=== PATIENT | female | born 1960 | race African-American/Black ===

== ENCOUNTER 2020-09-29 12:45 | Emergency (ER) | payer MEDICARE, SELFPAY ==
--- NOTE | ~2020-09-29 | XR_ITS ---
EXAMINATION: XR thoracic spine 3V, XR lumbar spine 2-3V DATE: 09/29/2020 13:49 INDICATION: Chronic back pain radiating down the left leg TECHNIQUE: 1. One AP, lateral and lateral swimmer's views of the thoracic spine were obtained. 2. AP, lateral and coned-down lateral lumbosacral views of the lumbar spine were obtained. COMPARISON: None. FINDINGS: Thoracic spine: Alignment is normal. Minimal anterior wedging of a few midthoracic vertebral bodies. Multilevel mild disc height loss throughout the thoracic spine. There is also mild disc height loss with prominent an terior endplate osteophytes at several levels in the mid to lower cervical spine. Heart size and medi astinal silhouette are normal. Visualized portion of the lungs are clear. Lumbar spine: Transitional L5 segment which is partially sacralized, more advanced on the left. Minimal thoracolumb ar dextrocurvature. Sagittal alignment is normal. Lumbar vertebral body heights are normal. Mild disc height loss at L3-L4 through L5-S1. Moderate lower lumbar predominant facet osteoarthritis. Sacral a rches are intact. Mild right sacroiliac osteoarthritis. Surgical clips in the anterior pelvis/lower a bdomen. Normal bowel gas pattern. IMPRESSION: 1. Mild cervical and thoracic spondylosis and mild to moderate lumbar spondylosis. Reviewed, dictated and finalized at location A. IMPRESSION: 1. Mild cervical and thoracic spondylosis and mild to moderate lumbar spondylos is.
[2020-09-29 12:50] VITALS: BP 155/71; PULSE 88; RESP 17; TEMP 36.5; O2SAT 97
--- NOTE | 2020-09-29 13:26 | ED.GENADULT ---
HPI - General Adult General Chief complaint: Abdominal Pain Stated complaint: abdominal pain that radiates into back Time Seen by Provider: 09/29/20 13:09 Source: patient History of Present Illness HPI narrative: Patient is a 60 y/o female complaining of upper and mid back pain starting 1 month ago. She describes her pain as aching and rates it as 7/10. She states that her pain is worse when she lays down on her back at night. She took meds for acid reflux, which did not help. There is some pain radiation to left upper abdomen and left buttock. She also has some tingling in her hands. Related Data Home Medications Medication Instructions Recorded Confirmed bupropion HCl 150 mg tablet,12 hr 150 mg PO DAILY 06/25/19 08/25/20 sustained-release fluticasone propionate 50 1 spray NASAL DAILY 06/25/19 08/25/20 mcg/actuation nasal spray,suspension travoprost 0.004 % eye drops 1 drop EACH EYE QPM 06/25/19 08/25/20 Allergies Allergy/AdvReac Type Severity Reaction Status Date / Time No Known Allergies Allergy Verified 09/29/20 12:54 Review of Systems Constitutional: Constitutional: Denies chills, Denies fever(s), Denies headache(s) and Denies weakness Eyes: Eyes: Denies blurry vision ENT: Denies headache(s) and Denies neck pain Cardiovascular: Cardiovascular: Denies chest pain and Denies dyspnea Respiratory: Respiratory: Denies cough and Denies dyspnea Gastrointestinal: Gastrointestinal: Reports abdominal pain, Denies diarrhea, Denies nausea and Denies vomiting Genitourinary: Genitourinary: Denies hematuria and Denies dysuria Musculoskeletal: Musculoskeletal: Reports back pain, Denies neck pain and Reports other (left buttock pain) Neurologic: Denies headache(s), Reports paresthesias and Denies weakness [facility] Past Medical History Medical History Depression GERD without esophagitis Glaucoma Follows with [facility] [place] - Dr Linares Hyperlipidemia Osteoarthritis of multiple joints Thyroid nodule Dr Coughlin - [facility]. Type 2 diabetes mellitus without complications Family History Family History Mother Hypertension Cerebrovascular accident Depression Family history of seizure disorder Father Cerebrovascular accident Family history of Alzheimer's disease Family history of heart disease in male family member before age 55 Hypertension Acute myocardial infarction Social History Social History Smoking packs per day: 1 Smoking cigarettes per day: 20.0 Years smoked: 40 Smoking pack-years: 40.00 Smoking status: Current every day smoker Tobacco type: cigarettes Second hand tobacco smoke exposure: No Alcohol intake: never Gender identity (if verbalized by the patient): Female Course Reevaluation(s) Reevaluation #1: Rechecked. Patient feels better. Date: 09/29/20 Time: 15:21 Vital Signs Vital signs: Vital Signs Temperature 36.5 C 09/29/20 12:50 Pulse Rate 88 09/29/20 12:50 Respiratory Rate 17 09/29/20 12:50 Blood Pressure 155/71 H 09/29/20 12:50 Pulse Oximetry 97 09/29/20 12:50 Temperature 36.5 C 09/29/20 12:50 Pulse Rate 88 09/29/20 12:50 Respiratory Rate 17 09/29/20 12:50 Blood Pressure 155/71 H 09/29/20 12:50 Pulse Oximetry 97 09/29/20 12:50 Medical Decision Making Vital Signs Vital Signs: Vital Signs Temperature 36.5 C 09/29/20 12:50 Pulse Rate 88 09/29/20 12:50 Respiratory Rate 17 09/29/20 12:50 Blood Pressure 155/71 H 09/29/20 12:50 Pulse Oximetry 97 09/29/20 12:50 Temperature 36.5 C 09/29/20 12:50 Pulse Rate 88 09/29/20 12:50 Respiratory Rate 17 09/29/20 12:50 Blood Pressure 155/71 H 09/29/20 12:50 Pulse Oximetry 97 09/29/20 12:50 Lab Data Result diagrams: 09/29/20 13:56 09/29/20 13:56 Labs: Lab
[2020-09-29] MEDS: CYCLOBENZAPRINE HCL 10 MG TABLET PO (13:55)
[2020-09-29 14:03] LABS: Basophils Percent Auto 0.6 % (0.2-1.2); Eosinophils Absolute Auto 0.2 K/mm3 (0-0.3); Eosinophils Percent Auto 2.5 % (0-4.4); Hemoglobin 14.7 g/dL (12.0-15.0); Immature Granulocyte Absolute 0.01 K/mm3 (0.00-0.031); Immature Granulocyte Percent A 0.1 % (0-0.5); Lymphocytes Absolute Auto 3.17 K/mm3 (0.9-3.2); Lymphocytes Percent Auto 44.3 % (18.3-44.2); Mean Corpuscular HGB Conc 33.4 g/dl (32-36); Mean Corpuscular Hemoglobin 30.3 pg (26-34); Mean Corpuscular Volume 90.7 fl (80-100); Mean Platelet Volume 10.2 fl (7.4-10.4); Monocytes Absolute Auto 0.6 K/mm3 (0.1-0.6); Monocytes Percent Auto 7.8 % (2.6-8.5); Neutrophils Absolute Auto 3.2 K/mm3 (1.3-6.7); Neutrophils Percent Auto 44.7 % (45.5-73.1); Platelet Count Result 255 k/mm3 (150-375); Red Blood Count 4.85 M/mm3 (4.2-5.4); Red Cell Distribution Width 12.9 % (11.5-14.5); White Blood Count 7.2 K/mm3 (4.5-10.0)
[2020-09-29 14:10] LABS: Add Urine Microscopic? YES; Appearance Urine Clear (Clear); Bilirubin Urine Negative (Negative); Blood Urine 1+ (Negative); Color Urine Straw (Yellow); Glucose Urine UA Negative (Negative); Ketones Urine Negative (Negative); Leukocyte Esterase Ur Negative LEU/UL (Negative); Mucus Urine Rare /lpf; Nitrate Urine Negative (Negative); Protein Urine Negative (Negative); Squamous Epithelial Cell Urine Occasional /hpf (Few); Urobilinogen Urine Negative mg/dL (<2.0); WBC Urine 0-3 /hpf
[2020-09-29 14:15] LABS: Specific Grav Ur 1.003 (1.001-1.035)
[2020-09-29 14:22] LABS: Alanine Aminotransferase 19 U/L (4-35); Albumin Level 4.7 g/dL (3.5-5.1); Alkaline Phosphatase 93 U/L (38-126); Anion Gap 6 mmol/L (8-16); Aspartate Amino Transferase 33 U/L (14-36); Bilirubin,Total 0.5 mg/dL (0.2-1.3); Blood Urea Nitrogen 12 mg/dL (7-17); Calcium 9.6 mg/dL (8.4-10.2); Carbon Dioxide 30 mmol/L (22-30); Chloride 105 mmol/L (98-107); Estimated CRCL calculation 63 ml/min; Estimated Glomerular Filt Rate > 60; Glucose 91 mg/dL (65-105); Lipase 173 U/L (23-300); Potassium 4.3 mmol/L (3.4-5.0); Sodium 141 mmol/L (137-145)
--- NOTE | 2020-09-29 15:00 | PC.NURSE ---
Pt reports pain is ok, it's not bad but denies change in pain number.
== END 2020-09-29 15:37 | disposition home or self-care (01) ==
PROVIDERS: Emergency Provider Emergency Medicine; PCP Nurse Practitioner
DX: M54.42 Lumbago with sciatica, left side (principal); K21.9 Gastro-esophageal reflux disease without esophagitis; H40.9 Unspecified glaucoma; E78.5 Hyperlipidemia, unspecified; M19.90 Unspecified osteoarthritis, unspecified site; E11.9 Type 2 diabetes mellitus without complications; E04.1 Nontoxic single thyroid nodule; F17.210 Nicotine dependence, cigarettes, uncomplicated
CPT/HCPCS: 36415; 72072; 72100; 80053; 81001; 83690; 85025; 99283; A9270

== ENCOUNTER → 2021-07-24 00:02 | Outpatient (CLI) | payer MEDICARE, SELFPAY ==
[2021-07-24 11:53] LABS: SARS-CoV-2 RNA PCR Negative
== END ==
PROVIDERS: PCP Nurse Practitioner; Visit Provider Internal Medicine Gastroenterology
DX: Z01.812 Encounter for preprocedural laboratory examination (principal); Z20.822 Contact with and (suspected) exposure to COVID-19
CPT/HCPCS: C9803; U0003; U0005

== ENCOUNTER 2021-07-28 01:23 | Day surgery (SDC) | payer MEDICARE, SELFPAY ==
[2021-07-20 14:01] VITALS: BMI 30.4
[2021-07-28 06:50] VITALS: BP 151/78; PULSE 96; RESP 18; TEMP 36.7; O2SAT 100; BMI 30.5
[2021-07-28] MEDS: LACTATED RINGERS 1,000 ML 150 ML IV CONT (07:03)
[2021-07-28 07:08] LABS: Glucose Point of Care 112 mg/dl (65-105)
--- NOTE | 2021-07-28 07:15 | WPDANESEPPF ---
Anes - Initial Pre Proc Eval Procedure: Operation Date: 07/28/21 08:00 Proposed Procedures p Screening Colonoscopy - Manuel Terry MD Date/Time: 07/28/21 07:15 Surgeon: Manuel Terry MD Pre Op Diagnosis: neoplasm screening Patient Data Age: 61 Gender: F Height: 1.75 m Weight: 93.9 kg Last Vital Signs Temp 36.7 C 07/28/21 06:50 Pulse 96 07/28/21 06:50 Resp 18 07/28/21 06:50 BP 151/78 H 07/28/21 06:50 Pulse Ox 100 07/28/21 06:50 Allergies Allergy/AdvReac Type Severity Reaction Status Date / Time No Known Allergies Allergy Verified 07/28/21 06:56 Home Medications Medication Instructions Recorded Confirmed Type fluticasone propionate 50 1 spray NASAL DAILY 06/25/19 07/28/21 History mcg/actuation nasal spray,suspension travoprost 0.004 % eye drops 1 drop EACH EYE QPM 06/25/19 07/28/21 History cetirizine 10 mg tablet See Rx Instructions .ROUTE 08/25/20 07/28/21 Rx .COMPLEX #30 tablet atorvastatin 20 mg tablet 20 mg PO DAILY #90 tablet 02/01/21 07/28/21 Rx meloxicam 7.5 mg tablet 7.5 mg PO DAILY #90 tablet 02/01/21 07/28/21 Rx metformin 500 mg tablet 500 mg PO BID #180 tablet 02/01/21 07/28/21 Rx omeprazole 40 mg capsule,delayed 40 mg PO DAILY #90 cap 02/01/21 07/28/21 Rx release albuterol sulfate 90 mcg/actuation 2 puff INHALATION Q4-6H PRN #42.5 02/23/21 07/28/21 Rx aerosol inhaler gm amoxicillin 875 mg-potassium 1 tablet PO BID #20 tablet 02/23/21 07/28/21 Rx clavulanate 125 mg tablet blood-glucose meter #1 ea 02/23/21 07/28/21 Rx nicotine 14 mg/24 hr daily 1 patch TRANSDERMAL DAILY #14 ea 02/23/21 07/28/21 Rx transdermal patch nicotine 21 mg/24 hr daily 1 patch TRANSDERMAL DAILY #28 ea 02/23/21 07/28/21 Rx transdermal patch nicotine 7 mg/24 hr daily 1 patch TRANSDERMAL DAILY #14 ea 02/23/21 07/28/21 Rx transdermal patch fluconazole 150 mg tablet 150 mg PO Q72H #2 tablet 02/25/21 07/28/21 Rx lancets #100 ea 05/31/21 07/28/21 Rx cyclobenzaprine 10 mg tablet 10 mg PO TID PRN #90 tablet 06/29/21 07/28/21 Rx Laboratory Tests 07/28/21 07:06 POC Capillary Glucose 112 mg/dl H mg/dl (65-105) Patient hx anesthesia problems: none Family hx anesthesia problems: none Results Review: All pre-operative results and documents have been reviewed as part of the pre-operative evaluation. [facility] Past Medical History Medical History Depression GERD without esophagitis Glaucoma Follows with [facility] [place] - Dr Linares Hyperlipidemia Osteoarthritis of multiple joints Thyroid nodule Dr Coughlin - [facility]. Type 2 diabetes mellitus without complications Family History Family History Mother Hypertension Cerebrovascular accident Depression Family history of seizure disorder Father Cerebrovascular accident Family history of Alzheimer's disease Family history of heart disease in male family member before age 55 Hypertension Acute myocardial infarction Social History Social History Smoking packs per day: 1 Smoking cigarettes per day: 20.0 Years smoked: 40 Smoking pack-years: 40.00 Smoking status: Current every day smoker Tobacco type: cigarettes Second hand tobacco smoke exposure: No Alcohol intake: never Substance use: never Substance use type: does not use Living arrangements: alone Gender identity (if verbalized by the patient): Female Spiritual care concerns: No Anes - Eval Final PreProcedure Day of Procedure 07/28/21 07:15 Patient weight: obese Heart: regular rate and rhythm Lungs: clear to auscultation Airway: Mallampati scale class II Neurological: alert and oriented Last oral intake: >/= 8 hours ASA classification: III Emergent: no Anesthetic plan: proceed Anesthesia type and monitoring: general GIVS and st
--- NOTE | 2021-07-28 07:56 | PM.HPGS ---
History of Present Illness History of Present Illness Consent: Risks, benefits, and alternatives have been discussed and questions answered. Patient agrees to proceed with procedure. Chief complaint: neoplasm screening Narrative: Alyssa Ashraf is a 61 year old female with colon polyp in 2015 Review of Systems Constitutional: Constitutional: Denies headache(s) and Denies weakness Eyes: Eyes: Denies blurry vision ENT: Reports Normal hearing present, Denies headache(s) and Denies neck pain Cardiovascular: Cardiovascular: Denies chest pain and Denies dyspnea Respiratory: Respiratory: Denies dyspnea Gastrointestinal: Gastrointestinal: Reports no additional gastrointestinal complaints Genitourinary: Genitourinary: Denies dysuria Musculoskeletal: Musculoskeletal: Denies neck pain Integumentary/Breasts: Skin/Breast: Denies dry skin Neurologic: Reports Normal hearing present, Denies headache(s) and Denies weakness Psychiatric: Psychiatric: Denies anxiety Endocrine: Endocrine: Denies change in body appearance Hematologic/Lymphatic: Hematologic/Lymphatic: Denies easy bleeding Allergic/Immunologic: Allergic/Immunologic: Denies urticaria PMFSH Past Medical History Medical History Depression GERD without esophagitis Glaucoma Follows with [facility] [place] - Dr Linares Hyperlipidemia Osteoarthritis of multiple joints Thyroid nodule Dr Coughlin - [facility]. Type 2 diabetes mellitus without complications Family History Family History Mother Hypertension Cerebrovascular accident Depression Family history of seizure disorder Father Cerebrovascular accident Family history of Alzheimer's disease Family history of heart disease in male family member before age 55 Hypertension Acute myocardial infarction Social History Social History Smoking packs per day: 1 Smoking cigarettes per day: 20.0 Years smoked: 40 Smoking pack-years: 40.00 Smoking status: Current every day smoker Tobacco type: cigarettes Second hand tobacco smoke exposure: No Alcohol intake: never Substance use: never Substance use type: does not use Living arrangements: alone Gender identity (if verbalized by the patient): Female Spiritual care concerns: No Meds Home Medications and Allergies Home Medications Medication Instructions Recorded Confirmed Type fluticasone propionate 50 1 spray NASAL DAILY 06/25/19 07/28/21 History mcg/actuation nasal spray,suspension travoprost 0.004 % eye drops 1 drop EACH EYE QPM 06/25/19 07/28/21 History cetirizine 10 mg tablet See Rx Instructions .ROUTE 08/25/20 07/28/21 Rx .COMPLEX #30 tablet atorvastatin 20 mg tablet 20 mg PO DAILY #90 tablet 02/01/21 07/28/21 Rx meloxicam 7.5 mg tablet 7.5 mg PO DAILY #90 tablet 02/01/21 07/28/21 Rx metformin 500 mg tablet 500 mg PO BID #180 tablet 02/01/21 07/28/21 Rx omeprazole 40 mg capsule,delayed 40 mg PO DAILY #90 cap 02/01/21 07/28/21 Rx release albuterol sulfate 90 mcg/actuation 2 puff INHALATION Q4-6H PRN #42.5 02/23/21 07/28/21 Rx aerosol inhaler gm amoxicillin 875 mg-potassium 1 tablet PO BID #20 tablet 02/23/21 07/28/21 Rx clavulanate 125 mg tablet blood-glucose meter #1 ea 02/23/21 07/28/21 Rx nicotine 14 mg/24 hr daily 1 patch TRANSDERMAL DAILY #14 ea 02/23/21 07/28/21 Rx transdermal patch nicotine 21 mg/24 hr daily 1 patch TRANSDERMAL DAILY #28 ea 02/23/21 07/28/21 Rx transdermal patch nicotine 7 mg/24 hr daily 1 patch TRANSDERMAL DAILY #14 ea 02/23/21 07/28/21 Rx transdermal patch fluconazole 150 mg tablet 150 mg PO Q72H #2 tablet 02/25/21 07/28/21 Rx lancets #100 ea 05/31/21 07/28/21 Rx cyclobenzaprine 10 mg tablet 10 mg PO TID PRN #90 tablet 06/29/21 07/28/21 Rx Allergies Allergy/AdvReac Type Severity Reaction Status Date / Carlos
[2021-07-28 08:15] VITALS: BP 137/75; PULSE 109; RESP 22; O2SAT 99
[2021-07-28 08:25] VITALS: BP 149/90; PULSE 105; RESP 18; O2SAT 100
[2021-07-28 08:35] VITALS: BP 158/95; PULSE 99; RESP 16; O2SAT 100
== END 2021-07-28 08:44 | disposition home or self-care (01) ==
PROVIDERS: PCP Nurse Practitioner; Visit Provider Internal Medicine Gastroenterology
PROC: 0DJD8ZZ Inspection of Lower Intestinal Tract, Via Natural or Artificial Opening Endoscopic (ICD-10-PCS; CPT 45378; principal; 2021-07-28 08:00)
DX: Z12.11 Encounter for screening for malignant neoplasm of colon (principal); D12.4 Benign neoplasm of descending colon; K64.8 Other hemorrhoids; K21.9 Gastro-esophageal reflux disease without esophagitis; E78.5 Hyperlipidemia, unspecified; E11.9 Type 2 diabetes mellitus without complications; F32.9 Major depressive disorder, single episode, unspecified; H40.9 Unspecified glaucoma; F17.210 Nicotine dependence, cigarettes, uncomplicated; E66.9 Obesity, unspecified; Z68.30 Body mass index [BMI] 30.0-30.9, adult; Z79.84 Long term (current) use of oral hypoglycemic drugs; Z79.51 Long term (current) use of inhaled steroids
CPT/HCPCS: 45385; 82948; 88305; C9803; J2704; J7120; U0003; U0005

== ENCOUNTER → 2022-03-03 14:32 | Outpatient (CLI) | payer MEDICARE, SELFPAY ==
--- NOTE | ~2022-03-03 | XR_ITS ---
XR chest 2V DATE: 03/03/2022 14:43 INDICATION: Cough TECHNIQUE: 2 views COMPARISON: two-view chest and CTA pulmonary scan FINDINGS: Heart size is within normal limits. No hilar or mediastinal enlargement. No pulmonary infil trate or consolidation, pleural effusion or pulmonary vascular congestion or pneumothorax. Osteopenia. IMPRESSION: No active cardiopulmonary disease Reviewed, dictated and finalized at location B.
== END ==
PROVIDERS: PCP Nurse Practitioner Family; Visit Provider Nurse Practitioner Family
DX: R05.9 Cough, unspecified (principal)
CPT/HCPCS: 71046

== ENCOUNTER 2023-01-17 14:26 | Outpatient (CLI) | payer MEDICARE, SELFPAY ==
--- NOTE | ~2023-01-17 | US_ITS ---
EXAMINATION: US thyroid DATE: 01/17/2023 15:25 INDICATION: Nontoxic single thyroid nodule. TECHNIQUE: Multiple ultrasound images of the thyroid were obtained. COMPARISON: None. FINDINGS: The right thyroid lobe measures 5.1 x 1.8 x 2.6 cm. The left thyroid lobe measures 4.6 x 1.0 x 1.6 c m. In the right thyroid lobe, there is a 2.5 cm solid, hypoechoic, wider than tall nodule with wai h margin and punctate echogenic foci (TI-RADS TR5). In the right thyroid lobe, there is a 5 mm solid, hypoechoic, wider than tall nodule with smooth margin without echogenic foci (TR4). In the thyroid i sthmus, there is a 6 mm solid, hypoechoic, wider than tall nodule with lobulated margin without echog enic foci (TR4). IMPRESSION: 1. Thyroid nodules. Ultrasound-guided fine-needle aspiration of the 2.5 cm right thyroid nodule is re commended. Reviewed, dictated and finalized at location A. IMPRESSION: 1. Thyroid nodules. Ultrasound-guided fine-needle aspiration of the 2.5 cm righ t thyroid nodule is recommended.
[2023-01-17 17:07] LABS: Thyroid Stimulating Hormone 0.772 uIU/mL (0.465-4.680)
[2023-01-17 17:20] LABS: Free T4 Free Thyroxine 0.99 ng/mL (0.78-2.19)
== END 2023-01-17 14:27 | disposition home or self-care (01) ==
LOC: ANHIMG 14:29
PROVIDERS: PCP Nurse Practitioner Family; Visit Provider Internal Medicine
DX: E04.2 Nontoxic multinodular goiter (principal)
CPT/HCPCS: 36415; 76536; 84439; 84443

== ENCOUNTER 2023-02-22 09:17 | Outpatient (CLI) | payer MEDICARE, SELFPAY ==
[2023-02-22 10:49] LABS: Alanine Aminotransferase 32 U/L (6-35); Albumin Level 4.5 g/dL (3.5-5.1); Alkaline Phosphatase 90 U/L (38-126); Anion Gap 6 mmol/L (8-16); Aspartate Amino Transferase 32 U/L (14-36); Bilirubin,Total 0.5 mg/dL (0.2-1.3); Blood Urea Nitrogen 18 mg/dL (7-17); Calcium 9.2 mg/dL (8.4-10.2); Carbon Dioxide 29 mmol/L (22-30); Chloride 104 mmol/L (98-107); Cholesterol 187 mg/dL (0-200); Estimated Glomerular Filt Rate > 60; Glucose 99 mg/dL (65-110); HDL Direct 47 mg/dL; Sodium 139 mmol/L (137-145); Triglycerides 133 mg/dL (<150)
[2023-02-22 11:00] LABS: LDL Cholesterol Direct 109 mg/dL
[2023-02-22 11:17] LABS: Hemoglobin A1C 6.1 % (<5.7)
[2023-02-22 11:20] LABS: Vitamin D 25 Hydroxy 59.5 ng/mL
== END 2023-02-22 09:18 | disposition home or self-care (01) ==
PROVIDERS: PCP Nurse Practitioner Family; Visit Provider Nurse Practitioner Family
DX: E55.9 Vitamin D deficiency, unspecified (principal); E78.5 Hyperlipidemia, unspecified; E11.9 Type 2 diabetes mellitus without complications; E03.9 Hypothyroidism, unspecified
CPT/HCPCS: 36415; 80053; 80061; 82306; 83036; 84443

== ENCOUNTER 2023-03-22 11:55 | Outpatient (CLI) | payer MEDICARE, SELFPAY ==
--- NOTE | ~2023-03-22 | US_ITS ---
EXAMINATION: US FNA w image guidance DATE: 03/22/2023 13:17 INDICATION: Right thyroid nodule. TECHNIQUE: The procedure and its benefits and risks were discussed with the patient. Risks specifically discusse d included bleeding. The patient verbalized understanding of the risks and agreed to proceed. The nec k was prepped and draped in the usual sterile manner. 1% lidocaine was used for local anesthesia. 6 passes were made with a 25G needle into the lesion under ultrasound guidance. There were no immedia te complications. FINDINGS: Grayscale ultrasound images demonstrate needles advanced into a 2.5 cm right thyroid nodule for biops y. IMPRESSION: 1. Ultrasound-guided fine needle aspiration of a right thyroid nodule. Reviewed, dictated and finalized at location A.
== END 2023-03-22 11:56 | disposition home or self-care (01) ==
PROVIDERS: PCP Family Medicine; Visit Provider Internal Medicine
DX: E04.9 Nontoxic goiter, unspecified (principal)
CPT/HCPCS: 10005; 88173; 88305

== ENCOUNTER 2023-06-03 08:14 | Outpatient (CLI) | payer MEDICARE, MEDICAID, SELFPAY ==
--- NOTE | ~2023-06-03 | MM_ITS ---
EXAMINATION: MM screening rob BI w jacquelyn HISTORY: Screening mammogram TECHNIQUE: Craniocaudal and mediolateral oblique 3-D tomosynthesis images were obtained and synthetic 2-D images were generated. CAD analysis was submitted and interpreted. COMPARISON: No prior mammogram is available for comparison at this institution. BREAST PARENCHYMAL COMPOSITION: There are scattered areas of fibroglandular density. FINDINGS: There is no evidence of suspicious mass, calcification, or architectural distortion to sugg est malignancy in either breast. There has been no suspicious interval change. IMPRESSION: 1. No mammographic evidence of malignancy. 2. Recommend routine screening mammography in one year. BI-RADS Category 1: Negative Reviewed, dictated and finalized at location A. MAKER HELPER
--- NOTE | ~2023-06-03 | DEXA_ITS ---
Bone Density Report Name: ANGELA FLOR Age: 62 Sex: Female Ethnicity: Black Date of : 1960 Indication: postmenopausal; screening for osteoporosis; height loss; hysterectomy; Referring Provider: INOCENTE, CAN Poe Study: Bone densitometry was performed. Exam Date: June 03, 2023 Accession number: [id number] Bone Density: Region BMD T-score Z-score Classification AP Spine(L1-L4) 1.047 0.0 0.9 Normal Femoral Neck (Left) 0.737 -1.0 -0.3 Normal Total Hip (Left) 0.952 0.1 0.4 Normal Femoral Neck (Right) 0.732 -1.1 -0.3 Osteopenia Total Hip (Right) 0.947 0.0 0.4 Normal Total Hip Mean 0.949 0.1 0.4 Normal World Health Organization criteria for BMD impression classify patients as: Normal (T-score at or above -1.0), Osteopenia (T-score between -1.0 and -2.5), or Osteoporosis (T-score at or below -2.5). 10-year Fracture Risk(1): Major Osteoporotic Fracture 3.3% Hip Fracture 0.4% Reported Risk Factors: [place] ([place]), Neck BMD=0.737, BMI=31.0, smoking (1) FRAX(R) Version 3.08. Fracture probability calculated for an untreated patient. Fracture probability may be lower if the patient has received treatment. Clinical Information Provided by Patient: Smokes Has used the following medications: Vitamin D, Calcium Has the following medical conditions: Hysterectomy Patient maximum height was 69 Menopause Age: 45 Does not regularly consume dairy products Drinks caffeinated beverages Onset of menses at age 1 Number of children 15 Impression: The patient has low bone mass, based on the Right Femoral Neck T-score. The patient has an estimated ten-year risk of hip fracture of 0.4% and an estimated ten-year risk of major fracture of 3.3%, based on the WHO FRAX algorithm. The patient has risk factors, including: smoking. Discussion: BONE DENSITY IS LOW AT ONE OR MORE SKELETAL SITES. This patient's lowest T-score is low at one or more skeletal sites. It meets the World Health Organization's (WHO) criteria for ?low bone mass? (T-score between -1.0 and -2.5). The patient's 10-year risk of fracture as calculated by FRAX is less than the threshold where pharmacological therapy is recommended by the National Osteoporosis Foundation (NOF). However, all treatment decisions require clinical judgment and consideration of individual patient factors, including patient preferences, comorbidities, previous drug use, risk factors not captured in the FRAX model (e.g., frailty, falls, vitamin D deficiency, increased bone turnover, interval significant decline in bone density) and possible under or overestimation of fracture risk by FRAX. The patient should follow a healthful lifestyle (good nutrition with adequate calcium and vitamin D, and appropriate weight-bearing exercise). Follow-Up: Consider
== END 2023-06-03 08:15 | disposition home or self-care (01) ==
LOC: ANHIMG 08:16
PROVIDERS: PCP Family Medicine; Visit Provider Nurse Practitioner Family
DX: Z12.31 Encounter for screening mammogram for malignant neoplasm of breast (principal); Z78.0 Asymptomatic menopausal state; M85.89 Other specified disorders of bone density and structure, multiple sites
CPT/HCPCS: 77063; 77067; 77080

== ENCOUNTER 2023-08-21 12:26 | Outpatient (CLI) | payer MEDICARE, SELFPAY ==
--- NOTE | ~2023-08-21 | US_ITS ---
EXAMINATION: US FNA w image guidance DATE: 08/21/2023 13:55 INDICATION: Right thyroid nodule. TECHNIQUE: The procedure and its benefits and risks were discussed with the patient. Risks specifically discusse d included bleeding. The patient verbalized understanding of the risks and agreed to proceed. The nec k was prepped and draped in the usual sterile manner. 1% lidocaine was used for local anesthesia. 8 passes were made with a 25G needle into the lesion under ultrasound guidance. There were no immedia te complications. FINDINGS: Grayscale ultrasound images demonstrate needles advanced into a 2.4 cm nodule in right thyroid lobe f or biopsy. IMPRESSION: 1. Ultrasound-guided fine needle aspiration of a right thyroid nodule. Reviewed, dictated and finalized at location A.
== END 2023-08-21 12:27 | disposition home or self-care (01) ==
LOC: ANHIMG 12:27
PROVIDERS: PCP Family Medicine; Visit Provider Internal Medicine
DX: E04.2 Nontoxic multinodular goiter (principal)
CPT/HCPCS: 10005; 88172; 88173; 88305

== ENCOUNTER 2024-03-01 11:05 | Outpatient (CLI) | payer MEDICARE, SELFPAY ==
[2024-03-01 11:57] LABS: Basophils Percent Auto 0.6 % (0.2-1.2); Eosinophils Absolute Auto 0.1 K/mm3 (0-0.3); Eosinophils Percent Auto 1.9 % (0-4.4); Hematocrit 45.4 % (37.0-47.0); Immature Granulocyte Absolute 0.01 K/mm3 (0.00-0.031); Immature Granulocyte Percent A 0.2 % (0-0.5); Lymphocytes Absolute Auto 2.92 K/mm3 (0.9-3.2); Lymphocytes Percent Auto 46.3 % (18.3-44.2); Mean Corpuscular Hemoglobin 30.9 pg (26-34); Mean Corpuscular Volume 93.6 fl (80-100); Mean Platelet Volume 10.6 fl (7.4-10.4); Monocytes Absolute Auto 0.5 K/mm3 (0.1-0.6); Monocytes Percent Auto 7.9 % (2.6-8.5); Neutrophils Absolute Auto 2.7 K/mm3 (1.3-6.7); Neutrophils Percent Auto 43.1 % (45.5-73.1); Platelet Count Result 231 k/mm3 (150-375); Red Blood Count 4.85 M/mm3 (4.2-5.4); White Blood Count 6.3 K/mm3 (4.5-10.0)
[2024-03-01 12:12] LABS: Alanine Aminotransferase 19 U/L (6-35); Albumin Level 4.5 g/dL (3.5-5.1); Alkaline Phosphatase 88 U/L (38-126); Anion Gap 6 mmol/L (4-12); Aspartate Amino Transferase 34 U/L (14-36); Bilirubin,Total 0.4 mg/dL (0.2-1.3); Blood Urea Nitrogen 12 mg/dL (7-17); Calcium 9.4 mg/dL (8.4-10.2); Carbon Dioxide 30 mmol/L (22-30); Chloride 103 mmol/L (98-107); Cholesterol 193 mg/dL (0-200); Estimated Glomerular Filt Rate > 60; Glucose 99 mg/dL (65-110); HDL Direct 54 mg/dL; Potassium 4.2 mmol/L (3.4-5.0); Sodium 139 mmol/L (137-145); Triglycerides 110 mg/dL (<150)
[2024-03-01 12:27] LABS: LDL Cholesterol Direct 122 mg/dL
[2024-03-01 12:29] LABS: Hemoglobin A1C 6.2 % (<5.7)
[2024-03-01 12:58] LABS: Thyroid Stimulating Hormone 0.775 uIU/mL (0.465-4.680)
[2024-03-01 13:01] LABS: Free T4 Free Thyroxine 0.86 ng/mL (0.78-2.19)
[2024-03-08 13:39] LABS: Vitamin D 1,25 (OH)2 Total 32 pg/mL (18-72); Vitamin D2 1,25 (OH)2 <8 pg/mL; Vitamin D3 1,25 (OH)2 32 pg/mL
== END 2024-03-01 11:06 | disposition home or self-care (01) ==
LOC: ANHLAB 11:09
PROVIDERS: PCP Family Medicine; Referring Provider Internal Medicine; Visit Provider Nurse Practitioner Family
DX: E11.36 Type 2 diabetes mellitus with diabetic cataract (principal); E55.9 Vitamin D deficiency, unspecified; I10 Essential (primary) hypertension; E04.1 Nontoxic single thyroid nodule
CPT/HCPCS: 36415; 80053; 80061; 82652; 83036; 84439; 84443; 85025

== ENCOUNTER 2024-03-08 11:04 | Outpatient (CLI) | payer MEDICARE, SELFPAY ==
[2024-03-08 14:38] LABS: Microalbumin Urine Random 7.3 mg/L (0-16.7)
[2024-03-08 14:43] LABS: Creatinine Urine 178.8 mg/dL; MALB Creatinine Ratio 4.1 mg/g (0-30)
== END 2024-03-08 11:05 | disposition home or self-care (01) ==
LOC: ANHGOSHLAB 11:05
PROVIDERS: PCP Family Medicine; Visit Provider Nurse Practitioner Family
DX: E11.9 Type 2 diabetes mellitus without complications (principal)
CPT/HCPCS: 82043

== ENCOUNTER 2024-07-02 15:08 | Outpatient (CLI) | payer MEDICARE, SELFPAY ==
--- NOTE | ~2024-07-02 | US_ITS ---
EXAMINATION: US thyroid DATE: 07/02/2024 16:01 INDICATION: Nontoxic multinodular goiter. TECHNIQUE: Multiple ultrasound images of the thyroid were obtained. COMPARISON: Ultrasound 01/17/2023, 08/21/23 FINDINGS: The right thyroid lobe measures 4.6 x 1.5 x 2.1 cm. The left thyroid lobe measures 4.3 x 1.7 x 0.9 c m. In the left thyroid lobe, there is a 9 mm solid, isoechoic, wider than tall nodule with ill-defin ed margin without echogenic foci (TI-RADS TR3). In the right thyroid lobe, there is a 6 mm solid, hyp oechoic, wider than tall nodule with smooth margin without echogenic foci (TR4). In the right thyroid lobe, there is a 2.2 cm solid, isoechoic, wider than tall nodule with ill-defined margin without ech ogenic foci (TR3), stable from 08/21/2023 when biopsy was benign. IMPRESSION: 1. Multinodular goiter, likely not clinically significant. No follow-up is needed. Reviewed, dictated and finalized at location B. ALESCENT SITTER IMPRESSION: 1. Multinodular goiter, likely not clinically significant. No follow-up is need ed.
--- OUTSIDE RECORDS SUMMARY | 2024-07-04 19:32 | XMS_ITS | Patient Health Summary ---
Author Organization [facility] [place] Address [address] [facility] [place] [address] Care Team Providers Care Bit Welder Name Role Phone Ngozi Arellano MD Primary Care Provider Walt gonzalez Note from [facility],non-owned Affiliates and Associated Physician Practices is amultiple site organization consisting of ambulatory clinics and hospital sitesin [place], [place], [place] and [place]. This disclosure is being madepursuant to the Care Everywhere program and may not contain all information available regarding this patient. Last updated 18.[facility] Allergies No known active allergies Medications * Be aware that medications may not be up to date on this document. Alwaysverify current medications with the patient. * hczzggm-inknouahplohe-rlauvjtm (EXCEDRIN MIGRAINE) 250-250-65 MG tablet Take 1 Tab by mouth every 4 hours as needed for Headache. * [place]-3 Fatty Acids (OMEGA 3) 1200 MG CAPS Take 1200 mg by mouth daily. * loratadine (CLARITIN) 10 MG tablet(Started 03/28/2011) Take 1 Tab by mouth once daily. 6 refills left * mometasone (NASONEX) 50 MCG/ACT nasal spray(Started 03/28/2011) [place] 2 Sprays into each nostril once daily. 6 refills left * Ergocalciferol (VITAMIN D PO) once daily. * ALPRAZolam (XANAX) 1 MG tablet(Started 09/22/2011) Take 1 Tab by mouth 2 times daily. * metFORMIN (GLUCOPHAGE) 500 MG tablet(Started 12/24/2018) * albuterol HFA (PROVENTIL;VENTOLIN;PROAIR) 108 (90 Base) MCG/ACT inhaler (Started 06/25/2019) INL 2 PFS PO Q 4 TO 6 H PRF SOB OR WHZ * omeprazole (PRILOSEC) 40 MG capsule(Started 09/30/2020) Take 40 mg by mouth as needed * meloxicam (MOBIC) 7.5 MG tablet(Started 08/25/2020) Take 7.5 mg by mouth once daily * cyclobenzaprine (FLEXERIL) 10 MG tablet(Started 09/30/2020) Take 10 mg by mouth 3 times daily as needed FOR MUSCLE SPASM * cetirizine (ZYRTEC) 10 MG tablet(Started 09/30/2020) Take 10 mg by mouth once daily * timolol gel-forming (TIMOPTIC-XE) 0.5 % ophthalmic gel-forming(Started 11/03/2020) Instill 1 (one) drop into both eyes once daily 4 refills by 11/03/2021 * atorvastatin (LIPITOR) 20 MG tablet(Started 11/19/2020) Take 20 mg by mouth once daily * latanoprost (XALATAN) 0.005 % ophthalmic solution(Started 12/22/2020) Instill 1 (one) drop into both eyes at bedtime 4 refills by 12/22/2021 Active Problems Problem Noted Date Diagnosed Date Abnormal mammogram 11/03/2020 Bipolar affective disorder 11/03/2020 Breast lump 11/03/2020 Bronchitis 11/03/2020 Family history of ischemic heart disease 021 History of colonic polyps 11/03/2020 History of other disorders o f nervous system and sense organs 11/03/2020 Hyperglycemia 11/03/2020 Nicotine dependence, unspecified, uncomplicated 11/03/2020 Other abnormal glucose 11/03/2020 Plantar fascial fibromatosis 11/03/2020 Pure hypercholesterolemia 11/03/2020 Renal insufficiency syndrome 11/03/2020 Breast screening 11/03/2020 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 Cataract, nuclear sclerotic senile, bilateral 08 / Primary open angle glaucoma (POAG) 03/10/2015 Anxiety 03/29/2011 Chronic back pain 03/29/2011 Tobacco abuse 03/29/2011 DJD (degenerative joint disease) of cervical spi ne 12/11/2009 Colon polyps 12/11/2009 HLD (hyperlipidemia) 10/29/2009 GERD (gastroesophageal reflux disease) 0 Social History Tobacco Use Types Packs/Day Years Used Date Smoking Tobacco: Every Day Cigarettes 1 30 Smokeless Tobacco: Never Alcohol Use Standard Drinks/Week Comments No 0 (1 standard drink = 0.6 oz pur e alcohol) Sex and Gender Information Value Date Recorded Sex Assigned at Not on file Gender Identity Not on file Sexual Orientation Not on file Last Filed Vital Signs Vital Sign Reading Time Taken Comments Blood Pressure 124/70 03/28/2011 11:00 AM CDT Pulse 79 03/28/2011 11:00 AM CDT Temperature - - Respiratory Rate 12 12/16/2010 1:32 PM CDT Oxygen Saturation 96% 12/04/2009 9:05 AM CDT Inhaled Oxygen Concentration - - Weight 87.1 kg (192 lb) 03/28/2011 11:00 AM CDT Height 172.7 cm (5' 8 ) 03/28/2011 11:00 AM CDT Body Mass Index 29.19 03/28/2011 11:00 AM CDT Procedures * OPH OCT TEST SLU(Performed 11/03/2020) Performed for Primary open angle glaucoma (POAG) of both eyes, mild stage * OPH VISUAL FIELD TEST SLU(Performed 11/03/2020) Performed for Primary open angle glaucoma (POAG) of both eyes, mild stage * OPH VISUAL FIELD TEST SLU(Performed 07/16/2019) Performed for Primary open angle glaucoma (POAG) of both eyes, mild stage * OPH OCT TEST SLU(Performed 07/16/2019) Performed for Primary open angle glaucoma (POAG) of both eyes, mild stage * OPH VISUAL FIELD TEST SLU(Performed 01/11/2019) Performed for Primary open angle glaucoma (POAG) of both eyes, mild stage * OPH OCT TEST SLU(Performed 01/11/2019) Performed for Primary open angle glaucoma (POAG) of both eyes, mild stage * OPH OCT TEST SLU(Performed 12/19/2017) Performed for Primary open angle glaucoma (POAG) of both eyes, mild stage * GROSS + MICRO EXAM(Performed 12/04/2009) * GROSS + MICRO EXAM(Performed 12/04/2009) Performed for Abdominal Pain, Epigastric * CT ABDOMEN WWO CONTRAST(Performed 10/29/2009) Performed for Hyperlipidemia Nec/Nos, History of Colonic Polyps, Hld (Hyperlipidemia), Neuralgia, Screening for Breast Cancer * MAMMO BILAT SCREENING(Performed 10/29/2009) Performed for Screening for Breast Cancer, Abdominal Pain, Epigastric, History of Colonic Polyps, Hld (Hyperlipidemia), Neuralgia * COMPREHENSIVE METABOLIC PANEL(Performed 10/29/2009) Performed for Hyperlipidemia Nec/Nos, Abdominal Pain, Epigastric * LIPASE BLOOD(Performed 10/29/2009) Performed for Hyperlipidemia Nec/Nos, Screening for Unspecified Condition, Abdominal Pain, Epigastric * CBC W AUTO DIFFERENTIAL(Performed 10/29/2009) Performed for Hyperlipidemia Nec/Nos, Abdominal Pain, Epigastric * CREATININE BLOOD(Performed 10/29/2009) Performed for Screening for Unspecified Condition, Hyperlipidemia Nec/Nos * AMYLASE BLOOD(Performed 10/29/2009) Performed for Hyperlipidemia Nec/Nos, Abdominal Pain, Epigastric * LIPID PROFILE(Performed 10/29/2009) Performed for Hyperlipidemia Nec/Nos * XR CERVICAL SPINE 2 OR 3VW(Performed 10/29/2009) Performed for Neuralgia, Abdominal Pain, Epigastric, History of Colonic Polyps, Hld (Hyperlipidemia), Screening for Breast Cancer * ERYTHROCYTE SEDIMENTATION RATE(Performed 10/20/2008) * INESSA BLOOD SCREEN W/REFLEX TITER(Performed 10/20/2008) * THYROID PANEL W TSH (TSH,T4,T3 UPTAKE,FTI)(Performed 10/20/2008) * LIPID PROFILE(Performed 10/20/2008) * COMPREHENSIVE METABOLIC PANEL(Performed 10/20/2008) * CBC W AUTO DIFFERENTIAL(Performed 10/20/2008) * GROSS + MICRO EXAM(Performed 04/11/2007) Results * OPH OCT TEST SLU (11/03/2020 3:28 PM CDT) Anatomical Region Laterality Modality Other 11/03/2020 3:28 PM CDT Keshia Elam MD OPHTHALMOLOGY SERVIC ES ORDERABLES * OPH VISUAL FIELD TEST SLU (11/03/2020 3:17 PM CDT) Anatomical Region Laterality Modality Other 11/03/2020 3:17 PM CDT Keshia Elam MD OPHTHALMOLOGY SERVIC ES ORDERABLES * OPH VISUAL FIELD TEST SLU (07/16/2019 2:01 PM GENERAL TELLER) Anatomical Region Laterality Modality Other 07/16/2019 2:01 PM GENERAL TELLER Rajesh Red MD OPHTHALMOLOGY SERVICES ORDERABLES * OPH OCT TEST SLU (07/16/2019 12:00 AM GENERAL TELLER) Anatomical Region Laterality Modality Other 07/16/2019 Keshia Elam MD OPHTHALMOLOGY SERVIC ES ORDERABLES * OPH VISUAL FIELD TEST SLU (01/11/2019 11:11 AM CDT) Anatomical Region Laterality Modality Other 01/11/2019 11:1 1 AM CDT Keshia Elam MD OPHTHALMOLOGY SERVIC ES ORDERABLES * OPH OCT TEST SLU (01/11/2019 12:00 AM CDT) Anatomical Region Laterality Modality Other 01/11/2019 Keshia Elam MD OPHTHALMOLOGY SERVIC ES ORDERABLES * OCT (12/19/2017 12:00 AM CDT) Anatomical Region Laterality Modality Other 12/19/2017 Diana Gay MD OPHTHALMOLOGY SE RVICES ORDERABLES * GROSS + MICRO EXAM (12/04/2009 8:00 AM CDT) Only the most recent of3 resultswithin the time period is included. Result CASE NUMBER [id number] Comment: ORDERING PHYSICIAN ??TEODORA CINTRON SPECIMEN TYPE ?Gastric Biopsy Date ? 12/04/2009 Physician ?Alexandra Cintron Gross Description ? The specimen is received in two Formalin containers labeled with the patient's name, Alyssa Ashraf. The first container is labeled gastric biopsy, and consists of multiple 1-2 mm fragments of hampton red tissue, stained, and submitted entirely in cassette A. The second container is labeled biopsy, sigmoid polyp, and consists of three 1-2 mm fragments of light hampton tissue, stained, and submitted entirely in cassette B. LW guadalupe Microscopic Exam ? 1. ?Sections show fragments of gastric mucosa with unremarkable ?histology. ??The lamina propria shows a few scattered, chronic ?inflammatory cells. ??Acute inflammation is not seen. ??H. ?pylori bacterial organisms are not identified. ??Dysplasia or ?malignancy is not seen. 2. ?Sections show fragments of colonic mucosa with focal features ?consistent with hyperplastic polyp. ??No atypia or malignancy ?is seen. MC/dc Diagnosis ? 1. ?Stomach, biopsy -- ?No pathologic diagnosis 2. ?Sigmoid colon, polyp, biopsy -- ?Hyperplastic polyp MC/dc Assistant Therapy Aide ? Dc Pathologist ?Marylou Petersen MD [place]. ?12/05/2009 0838 <2> CPT code ? 09937 x2 MISCELLANEOUS SAMPLES / Unknown 12/04/2009 8:00 AM CDT 12/04/2009 4:04 PM CDT Historical Provider LAB - PATHOLOGY/C YTOLOGY ORDERABLES * CT ABDOMEN WITH AND WITHOUT IV CONTRAST (10/29/2009 2:05 PM CDT) Anatomical Region Laterality Modality Abdomen Computed Tomogra phy 10/29/2009 2:50 PM CDT Impressions 10/29/2009 3:42 PM CDT No intra-abdominal abnormality seen. Postsurgical changes umbilical hernia repair. Narrative 10/29/2009 3:[address] ABDOMEN HISTORY: Abdominal pain. History of umbilical hernia with surgery. Pre and post intravenous contrast CT scan of the abdomen are performed. 100 cc of Omnipaque 350 was introduced. Axial and coronal images are obtained. The lung bases are clear. There is no free air or free fluid in the abdominal cavity. The gallbladder, liver, spleen, pancreas and both kidneys are within normal limits. There is no obstructive uropathy or bowel obstruction seen. There is no sign of inflammation. There is no retroperitoneal lymphadenopathy. Metallic melvi are seen in the anterior abdominal wall adjacent to the umbilicus. Procedure Note Josefa Jdud MD - 10/29/2009 CT ABDOMEN HISTORY: Abdominal pain. History of umbilical hernia with surgery. Pre and post intravenous contrast CT scan of the abdomen are performed. 100 cc of Omnipaque 350 was introduced. Axial and coronal images are obtained. The lung bases are clear. There is no free air or free fluid in the abdominal cavity. The gallbladder, liver, spleen, pancreas and both kidneys are within normal limits. There is no obstructive uropathy or bowel obstruction seen. There is no sign of inflammation. There is no retroperitoneal lymphadenopathy. Metallic melvi are seen in the anterior abdominal wall adjacent to the umbilicus. IMPRESSION No intra-abdominal abnormality seen. Postsurgical changes umbilical hernia repair. Ayan Foster MD CT ORDERABLES * [id number] JESUS SCREENING DIGITAL IMAGE BILATERAL (10/29/2009 1:31 PM CDT) Anatomical Region Laterality Modality Breast Bilateral Mammography 11/02/2009 8:12 AM CDT Narrative 11/03/2009 10:32 AM CDT EXAMINATION: Digital screening mammogram on 10/29/2009. LPN CMA: Ekaterina Carreno, RT, RM PRIOR: 2005 FINDINGS: Computer assisted detection was ??utilized. ??The tissue density is fatty. There is no significant change since the prior mammogram. ASSESSMENT: BIRADS Category 1: ??Negative mammogram. RECOMMENDATION: Follow up in one year. [facility] staff will contact and schedule patients with BIRADS categories 0, 4, and 5. Procedure Note Asad Hayes MD / Opal Hope (Ce) - 11/02/2009 EXAMINATION: Digital screening mammogram on 10/29/2009. LPN CMA: Ekaterina Carreno, RT, RM PRIOR: 2005 FINDINGS: Computer assisted detection was utilized. The tissue density is fatty. There is no significant change since the prior mammogram. ASSESSMENT: BIRADS Category 1: Negative mammogram. RECOMMENDATION: Follow up in one year. [facility] staff will contact and schedule patients with BIRADS categories 0, 4, and 5. Ayan Foster MD MAMMO ORDERABLES * (ABNORMAL) CBC W AUTO DIFFERENTIAL (10/29/2009 12:29 PM CDT) Only the most recent of2 resultswithin the time period is included. WBC 5.5 4.0 - 10.0 K/[facility] RBC 4.87 3.80 - 5.80 M[facility] Hemoglobin 14.8 12.0 - 16.0 gm/dl [facility] Hematocrit 44.1 37.0 - 47.0 % [facility] MCV 90.6 80.0 - 100.0 fl [facility] MCH 30.4 26.0 - 34.0 pg [facility] MCHC 33.6 31.0 - 37.0 gm/dl [facility] Platelet Count 236 150 - 400 K[facility] RDW 12.7 11.5 - 14.5 % [facility] Neutrophils % Manual 31(L) 50 - 70 manual % [facility] Lymphocytes % Manual 60(H) 20 - 40 manual % [facility] Monocytes % Manual 8 0 - 12 manual % [facility] Eosinophils % Manual 1 0 - 5 manual % [facility] RBC Morphology Normal [facility] WBC Morph Normal Morphology [facility] Cells Counted 100 [facility] Comment Smear being reviewed, manual differential to follow. [facility] Addendum CBC SMEAR REVIEW COMPLETED [facility] BLOOD SPECIMEN / Unknown 10/29/2009 12:29 PM CDT 10/29/2009 1:22 PM CDT Narrative [facility] - 10/29/2009 2:19 PM CDT dkp Ayan Foster MD LAB - HEMATOLOGY ORD ERABLES Performing Organization Address [facility] Co de Phone Number [facility] [address] [place] [address] * COMPREHENSIVE METABOLIC PANEL (10/29/2009 12:29 PM CDT) Only the most recent of2 resultswithin the time period is included. Sodium 143 137 - 145 mmol/L [facility] Potassium 3.8 3.6 - 5.0 mmol/L [facility] Chloride 104 98 - 107 mmol/L [facility] BUN 10 7 - 17 mg/dl [facility] Creatinine 1.01 0.52 - 1.04 mg/dl [facility] Glucose 77 65 - 105 mg/dl [facility] Calcium 9.8 8.4 - 10.2 mg/dl [facility] Alkaline Phosphatase 90 38 - 126 U/L [facility] AST 29 8 - 39 U/L [facility] Bilirubin Total 0.2 0.2 - 1.3 mg/dl [facility] Protein Total 7.8 6.3 - 8.2 gm/dl [facility] Albumin 4.5 3.9 - 5.0 gm/dl [facility] CO2 27 22 - 30 mmol/L [facility] ALT 11 9 - 52 U/L [facility] eGFR by MDRD 70 >60 mL/min/1.7 3m2 [facility] Comment eGFR [facility] Comment: ? The eGFR does not apply to patients who are younger than ? 18 or older than 70. BLOOD SPECIMEN / Unknown 10/29/2009 12:29 PM CDT 10/29/2009 1:22 PM CDT Narrative [facility] - 10/29/2009 3:03 PM CDT dkp Ayan Foster MD LAB - CHEMISTRY AYANA BONDS Performing Organization Address [facility] de Phone Number [facility] [address] [place] [address] * LIPASE BLOOD (10/29/2009 12:29 PM CDT) Lipase 114 23 - 300 U/L [facility] BLOOD SPECIMEN / Unknown 10/29/2009 12:29 PM CDT 10/29/2009 1:22 PM CDT Narrative [facility] - 10/29/2009 2:19 PM CDT dkp Ayan Foster MD LAB - CHEMISTRY ORDBibiana BONDS Performing Organization Address City/[facility]/ZIP Co de Phone Number [facility] [address] [place] [phone] * CREATININE BLOOD (10/29/2009 12:29 PM CDT) Creatinine 1.02 0.52 - 1.04 mg/dl [facility] eGFR by MDRD 69 >60 mL/min/1.7 3m2 [facility] Comment eGFR [facility] Comment: ? The eGFR does not apply to patients who are younger than ? 18 or older than 70. BLOOD SPECIMEN / Unknown 10/29/2009 12:29 PM CDT 10/29/2009 1:22 PM CDT Narrative [facility] - 10/29/2009 2:19 PM CDT dkp Ayan Foster MD LAB - CHEMISTRY ORDBibiana BONDS Performing Organization Address City/[facility]/ZIP Co de Phone Number [facility] [address] [place] [phone] * (ABNORMAL) AMYLASE BLOOD (10/29/2009 12:29 PM CDT) Amylase 117(H) 30 - 110 U/L [facility] BLOOD SPECIMEN / Unknown 10/29/2009 12:29 PM CDT 10/29/2009 1:22 PM CDT Narrative [facility] - 10/29/2009 2:19 PM CDT dkp Ayan Foster MD LAB - CHEMISTRY ORDBibiana BONDS Performing Organization Address City/[facility]/ZIP Co de Phone Number [facility] [address] [place] [phone] * (ABNORMAL) LIPID PROFILE (10/29/2009 12:29 PM CDT) Only the most recent of2 resultswithin the time period is included. [facility] Signature Cholesterol 244(H) <200 mg/dl [facility] Triglycerides 126 <150 mg/dl [facility] HDL Cholesterol 56 >=40 mg/dl [facility] VLDL Calculated 25 <=30 mg/dl [facility] LDL Calculated 163(H) <100 mg/dl [facility] Cholesterol Risk Factor 4.36 <4.45 [facility] Comment Lipid [facility] Comment: ? Normal values based on [place] [employer] guidelines. ? LIPID PROFILE GUIDELINES ? Total Cholesterol ?Category ?-------- ? Less than 200 mg/dl ?Desirable level that puts you at lower ?risk for heart disease. ??A cholesterol ?level of 200 mg/dl or greater increases ?your risk. ? 200 to 239 mg/dl ? Borderline high ? 240 mg/dl and above ?High blood cholesterol. ??A person with ?this level has more than twice the risk ?of heart disease compared to someone ?whose cholesterol is below 200 mg/dl. ? HDL Cholesterol ?Category ?-------- ? Less than 40 mg/dl ? Low HDL cholesterol. ??A major risk ?factor for heart disease. ? 40 to 59 mg/dl ? Borderline low. ? 60 mg/dl and above ? High HDL cholesterol. ??An HDL of 60 ?and above is considered protective ?against heart disease. ? LDL Cholesterol ?Category ?-------- ? Less than 100 mg/dl ?Optimal ? 100 to 129 mg/dl ? Near or above optimal ? 130 to 159 mg/dl ? Borderline high ? 160 to 189 mg/dl ? High ? 190 mg/dl and above ?Very high ? Triglyceride ? Category ? -------- ? Less than 150 mg/dl ?Normal ? 150 to 199 mg/dl ? Borderline high ? 200 to 499 mg/dl ? High ? 500 mg/dl and above ?Very high BLOOD SPECIMEN / Unknown 10/29/2009 12:29 PM CDT 10/29/2009 1:22 PM CDT Narrative [facility] - 10/29/2009 2:24 PM CDT dkp Ayan Foster MD LAB - CHEMISTRY AYANA BONDS [facility] Organization Address City/State/[facility] Co de Phone Number [facility] [address] [place] [address] * XR CERVICAL SPINE 2 OR 3 VW (10/29/2009 11:21 AM CDT) Anatomical Region Laterality Modality Spine Radiographic Minna ging 10/29/2009 12:2 0 PM CDT Impressions 10/29/2009 2:37 PM CDT Osteoarthritis with disc degeneration. No fracture seen. Narrative 10/29/2009 2:37 PM CDT CERVICAL SPINE HISTORY: Neck pain. Neuralgia. Three views of the cervical spine are obtained. There are spurs at C4, C5 and C6 vertebral bodies with narrowing of the C4-C5 and C5-C6 disc spaces. There is no compression fracture or dislocation. The prevertebral soft tissue is within normal limits. Procedure Note Josefa Judd MD - 10/29/2009 CERVICAL SPINE HISTORY: Neck pain. Neuralgia. Three views of the cervical spine are obtained. There are spurs at C4, C5 and C6 vertebral bodies with narrowing of the C4-C5 and C5-C6 disc spaces. There is no compression fracture or dislocation. The prevertebral soft tissue is within normal limits. IMPRESSION Osteoarthritis with disc degeneration. No fracture seen. Ayan Foster MD DIAGNOSTIC IMAGING O RDERABLES * THYROID PANEL W TSH (10/20/2008 10:02 AM CDT) TSH 1.113 0.450 - 4.500 uIU/mL [facility] ACCOUNT BILL T4 Total 8.4 4.5 - 12.0 ug/dL [facility] ACCOUNT BILL T3 Uptake 28 24 - 39 % [facility] ACCOUNT BILL Free Thyroxine Index 2.4 1.2 - 4.9 [facility] ACCOUNT BILL 10/20/2008 10:0 2 AM CDT 10/20/2008 6:20 PM CDT Narrative Resulting Agency Comment [facility] [address] ??[facility] [phone] Ayan Foster MD LAB - CHEMISTRY AYANA BONDS Performing Organization Address [facility] de Phone Number [facility] ACCOUNT BILL * INESSA BLOOD SCREEN (10/20/2008 10:02 AM CDT) INESSA Direct Negative Negative [facility] ACCOUNT BILL 10/20/2008 10:0 2 AM CDT 10/20/2008 6:20 PM CDT Narrative Resulting Agency Comment [facility] [address] ??[facility] [phone] Ayan Foster MD LAB - CHEMISTRY AYANA BONDS Performing Organization Address [facility] de Phone Number [facility] ACCOUNT BILL * SED RATE WESTERGREN AUTO (10/20/2008 10:02 AM CDT) Erythrocyte Sedimentation Rate Westergren 3 0 - 20 mm/hr [facility] ACCOUNT BILL 10/20/2008 10:0 2 AM CDT 10/20/2008 6:20 PM CDT Narrative Resulting Agency Comment [facility] [address] ??[facility] [phone] Ayan Foster MD LAB - HEMATOLOGY ORD ERABLES [facility] ACCOUNT BILL Care Teams Bit Welder Relationship Specialty Start Date End Date Ngozi Arellano MD PCP - General 08/02/21
--- OUTSIDE RECORDS SUMMARY | 2024-07-04 19:32 | XMS_ITS | Referral Summary ---
Author Organization [facility] [employer] Address [address] [place] [address] Care Team Providers Care Plumbing Contractor Name Role Phone Ngozi Arellano MD Primary Care Provider Roberta ble Source Comments [facility],non-owned Affiliates and Associated Physician Practices is amultiple site organization consisting of ambulatory clinics and hospital sitesin [place], [place], [place] and [place]. This disclosure is being madepursuant to the Care Everywhere program and may not contain all information available regarding this patient. Last updated 18.[facility] [employer] Allergies No known active allergies Medications * Be aware that medications may not be up to date on this document. Alwaysverify current medications with the patient. Medication Sig Dispensed Refills Start Date End Date Status aspirin-acetaminoph en-caffeine (EXCEDRIN MIGRAINE) 250-250-65 MG tabletIndications:A bdominal pain, epigastric,History of colonic polyps,HLD (hyperlipidemia),Ne uralgia,Screening for breast cancer Take 1 Tab by mouth every 4 hours as needed for Headache. Active [place]-3 Fatty Acids (OMEGA 3) 1200 MG CAPSIndications:Abd ominal pain, epigastric,History of colonic polyps,HLD (hyperlipidemia),Ne uralgia,Screening for breast cancer Take 1200 mg by mouth daily. Active loratadine (CLARITIN) 10 MG tablet Take 1 Tab by mouth once daily. 30 Tab 6 03/28/2011 Active Additional Information Patient taking differently:10 mg OralPRN, Informant: Patient, Reported on 11/03/2020 mometasone (NASONEX) 50 MCG/ACT nasal spray [place] 2 Sprays into each nostril once daily. 3 Inhaler 6 03/28/2011 Active Additional Information Patient taking differently:2 spray Each NostrilPRN, Informant: Patient, Reported on 11/03/2020 Ergocalciferol (VITAMIN D PO) once daily. Active ALPRAZolam (XANAX) 1 MG tabletIndications:A nxiety state Take 1 Tab by mouth 2 times daily. 60 Tab 0 09/22/2011 Active metFORMIN (GLUCOPHAGE) 500 MG tablet 12/24/2018 Active albuterol HFA (PROVENTIL;VENTOLIN ;PROAIR) 108 (90 Base) MCG/ACT inhaler INL 2 PFS PO Q 4 TO 6 H PRF SOB OR WHZ 06/25/2019 Active omeprazole (PRILOSEC) 40 MG capsule Take 40 mg by mouth as needed 09/30/2020 Active meloxicam (MOBIC) 7.5 MG tablet Take 7.5 mg by mouth once daily 08/25/2020 Active cyclobenzaprine (FLEXERIL) 10 MG tablet Take 10 mg by mouth 3 times daily as needed FOR MUSCLE SPASM 09/30/2020 Active cetirizine (ZYRTEC) 10 MG tablet Take 10 mg by mouth once daily 09/30/2020 Active timolol gel-forming (TIMOPTIC-XE) 0.5 % ophthalmic gel-forming Instill 1 (one) drop into both eyes once daily 15 mL 4 11/03/2020 Active atorvastatin (LIPITOR) 20 MG tablet Take 20 mg by mouth once daily 11/19/2020 Active latanoprost (XALATAN) 0.005 % ophthalmic solution Instill 1 (one) drop into both eyes at bedtime 7.5 mL 4 12/22/2020 Active Active Problems Problem Noted Date Diagnosed Date [...] folds 06/13/2018 Cataract, nuclear sclerotic senile, bilateral Primary open angle glaucoma (POAG) 03/10/2015 Overview (11/03/2020): Overview: IMO load Anxiety 03/29/2011 Chronic back pain 03/29/2011 Tobacco abuse 03/29/2011 DJD (degenerative joint disease) of cervical spi ne 12/11/2009 Colon polyps 12/11/2009 Overview (03/28/2011): colonoscopy 2009 HLD (hyperlipidemia) 10/29/2009 GERD (gastroesophageal reflux disease) [...] Mass Index 29.19 03/28/2011 11:00 AM CDT Plan of Treatment Not on file Procedures Procedure Name Priority Date/Time Associated Diagnosis Comments MAMMO BILAT SCREENING Routine 10/29/2009 1:31 PM CDT Screening for Breast Cancer Abdominal Pain, Epigastric History of Colonic Polyps Hld (Hyperlipidemia) Neuralgia from Last 3 Months or Most Recently Relevant to Health Maintenance Results * [id number] JESUS SCREENING DIGITAL IMAGE BILATERAL (10/29/2009 1:31 PM CDT) Anatomical Region Laterality Modality Breast Bilateral Mammography 11/02/2009 8:12 AM CDT Narrative 11/03/2009 10:32 AM CDT EXAMINATION: Digital screening mammogram on 10/29/2009. MARKETING PERFORMANCE ANALYST: Ekaterina Carreno, RT, RM PRIOR: 2005 FINDINGS: Computer assisted detection was ??utilized. ??The tissue density is fatty. There is no significant change since the prior mammogram. ASSESSMENT: BIRADS Category 1: ??Negative mammogram. RECOMMENDATION: Follow up in one year. [facility] staff will contact and schedule patients with BIRADS categories 0, 4, and 5. Procedure Note Asad Hayes MD / Opal Hope (Ce) - 11/02/2009 EXAMINATION: Digital screening mammogram on 10/29/2009. MARKETING PERFORMANCE ANALYST: Ekaterina Carreno RT, RM PRIOR: 2005 FINDINGS: Computer assisted detection was utilized. The tissue density is fatty. There is no significant change since the prior mammogram. ASSESSMENT: BIRADS Category 1: Negative mammogram. RECOMMENDATION: Follow up in one year. [facility] staff will contact and schedule patients with BIRADS categories 0, 4, and 5. Ayan Foster MD MAMMO ORDERABLES from Last 3 Months or Most Recently Relevant to Health Maintenance Care Teams Plumbing Contractor Relationship Specialty Start Date End Date Ngozi Arellano MD PCP - General 08/02/21
--- OUTSIDE RECORDS SUMMARY | 2024-07-04 19:32 | XMS_ITS | Clinical Summary ---
Author Organization [facility] Address [address] [place] [address] Care Team Providers Care Gauger Chief Name Role Phone Moncho Wheeler MD Primary Care Provider +1- [phone] Allergies No known active allergies Medications atorvastatin (LIPITOR) 40 mg tablet TK 1 T PO QD 1 8 Active buPROPion SR (WELLBUTRIN SR) 150 mg 12 hr tablet 8 Active cyclobenzaprine (FLEXERIL) 10 mg tablet TK 1/2 TO 1 T PO Q 8 H 3 8 Active albuterol HFA (PROVENTIL HFA,VENTOLIN HFA,PROAIR HFA) 90 mcg/actuation inhaler Inhale 2 puffs every 6 (six) hours as needed for wheezing. Active metFORMIN (GLUCOPHAGE) 500 mg tablet Take 500 mg by mouth 2 (two) times a day with meals. Active travoprost (TRAVATAN Z) 0.004 % drops daily. Active cyclobenzaprine (FLEXERIL) 10 mg tablet Take 1 tablet (10 mg total) by mouth nightly as needed for muscle spasms. 12 tablet 9 Active ibuprofen (ADVIL,MOTRIN) 600 mg tablet Take 1 tablet (600 mg total) by mouth 3 (three) times a day with meals. 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 Medical History Medical History Date Comments Anxiety Diabetes (HCC) Depression Recurrent sinus infections Social History Tobacco Use Types Packs/Day Years Used Date Smoking Tobacco: Every Day Smokeless Tobacco: Never Alcohol Use Standard Drinks/Week Comments No 0 (1 standard drink = 0.6 oz pur e alcohol) Personal Safety Answer Date Recorded Getting School Help Needed Not on file Comments Unknown Sex and Gender Information Value Date Recorded Sex Assigned at Not on file Legal Sex Female 1:20 AM TRANSMISSION REPAIRER Gender Identity Not on file Sexual Orientation Not on file Obstetrics History Last Filed Vital Signs Vital Sign Reading Time Taken Comments Blood Pressure 142/92 08/02/2018 9:43 PM TRANSMISSION REPAIRER Pulse 82 08/02/2018 9:43 PM TRANSMISSION REPAIRER Temperature 36.5 ??C (97.7 ??F) 08/02/2018 8:09 PM CS T Respiratory Rate 16 08/02/2018 9:43 PM TRANSMISSION REPAIRER Oxygen Saturation 97% 08/02/2018 9:43 PM TRANSMISSION REPAIRER Inhaled Oxygen Concentration - - Weight 91.7 kg (202 lb 3.2 oz) 12/25/2018 12:56 PM CDT Height 175.3 cm (5' 9 ) 08/02/2018 8:09 PM TRANSMISSION REPAIRER Body Mass Index 29.86 08/02/2018 8:09 PM TRANSMISSION REPAIRER Plan of Treatment Not on file Insurance * Guarantor: Alyssa Ashraf Account Type Relation to Patient Date of Phone Billing Address Personal/Family Self 1960 [address] [place] [address] [employer] MEDICARE HMO * Guarantor: Alyssa Ashraf Account Type Relation to Patient Date of Phone Billing Address Personal/Family Self [address] [place] [address] [employer]LL[employer] MEDICARE HMO * Guarantor: Alyssa Ashraf Account Type Relation to Patient Date of Phone Billing Address Personal/Family Self [address] [place] [address] Care Teams Gauger Chief Relationship Specialty Start Date End Date Moncho Wheeler MD [address] [place] [address] PCP - General 02/03/17
--- OUTSIDE RECORDS SUMMARY | 2024-07-04 19:32 | XMS_ITS | Referral Summary ---
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 Social History Tobacco Use Types Packs/Day Years [...] on file Legal Sex Female 1:20 AM SOYFREEZE OPERATOR Gender Identity Not on file Sexual Orientation Not on file Last Filed Vital Signs Vital Sign Reading Time Taken Comments Blood Pressure 142/92 08/02/2018 9:43 PM SOYFREEZE OPERATOR Pulse 82 08/02/2018 9:43 PM SOYFREEZE OPERATOR Temperature 36.5 ??C (97.7 ??F) 08/02/2018 8:09 PM CS T Respiratory Rate 16 08/02/2018 9:43 PM SOYFREEZE OPERATOR Oxygen Saturation 97% 08/02/2018 9:43 PM SOYFREEZE OPERATOR Inhaled Oxygen Concentration - - Weight 91.7 kg (202 lb 3.2 oz) 12/25/2018 12:56 PM CDT Height 175.3 cm (5' 9 ) 08/02/2018 8:09 PM SOYFREEZE OPERATOR Body Mass Index 29.86 08/02/2018 8:09 PM SOYFREEZE OPERATOR Plan of Treatment Not on file Insurance * Guarantor: Alyssa Ashraf Account Type Relation to Patient Date of Phone Billing Address Personal/Family Self 1960 [address] [place] [address] WELL[employer] MEDICARE HMO * Guarantor: Alyssa Ashraf Account Type Relation to Patient Date of Phone Billing Address Personal/Family Self [address] [place] [address] WELL[employer] MEDICARE HMO * Guarantor: Alyssa Ashraf Account Type Relation to Patient Date of Phone Billing Address Personal/Family Self [address] [place] [address] Care Teams Art Therapy Specialist Relationship Specialty Start Date End Date Moncho Wheeler MD [address] [place] [address] PCP - General 02/03/17
--- OUTSIDE RECORDS SUMMARY | 2024-07-04 19:32 | XMS_ITS | Clinical Summary ---
Author Organization [facility] Address [address] [place] [address] Care Team Providers Care Bulb Weeder Name Role Phone Ngozi Arellano MD Primary Care Provider Walt ble Source Comments [facility],non-owned Affiliates and Associated Physician Practices is amultiple site organization consisting of ambulatory clinics and hospital sitesin [place], [place], [place] and [place]. This disclosure is being madepursuant to the Care Everywhere program and may not contain all information available regarding this patient. Last updated 18.[facility] Allergies No known active allergies Medications * [...] 4 hours as needed for Headache. Active [place]-3 Fatty Acids (OMEGA 3) 1200 MG CAPSIndications:Abd ominal pain, epigastric,History of colonic polyps,HLD (hyperlipidemia),Ne uralgia,Screening for breast cancer Take 1200 mg by mouth daily. Active loratadine (CLARITIN) 10 MG tablet Take 1 Tab by mouth once daily. 30 Tab 6 03/28/2011 Active Additional Information Patient taking differently:10 mg OralPRN, Informant: Patient, Reported on 11/03/2020 mometasone (NASONEX) 50 MCG/ACT nasal spray [place] 2 Sprays into each nostril once daily. [...] (hyperlipidemia) 10/29/2009 GERD (gastroesophageal reflux disease) 0 Family History Medical History Relation Name Comments Hypertension Father Hypertension Mother Hypertension Sister Relation Name Status Comments Father Mother Sister Social History Tobacco Use Types Packs/Day Years [...] 03/28/2011 11:00 AM CDT Plan of Treatment Health Maintenance Due Date Last Done Comments COLOGUARD (AGES 45-75) - COL ON CA SCREENING [address] COLONOGRAPHY - COLON CA SCREENING 1960 FIT - COLON CA SCREENING 1960 FLEX SIG - COLON CA SCREENING 1960 HIV SCREENING 1974 HEPATITIS C SCREENING 07/19/1977 DTAP/TDAP/TD VACCINES (1 - Tdap) 1978 PNEUMOCOCCAL VACCINE 50+ (1 of 2 - PCV) 1978 PNEUMOCOCCAL VACCINE (1 of 2 - PCV) 1978 LUNG CANCER SCREENING 2009 ZOSTER VACCINE (1 of 2) 2009 MAMMOGRAM 10/30/2011 10/29/2009, 06/12/2005 PAP SMEAR 10/29/2012 10/29/2009 COLONOSCOPY - COLON CA SCREENING 06/12/2016 06/12/2006 Colorectal Cancer Screening 06/12/2016 COVID-19 VACCINE ( - 2023-2 5 season) 2024 INFLUENZA VACCINE (#1) 2024 Respiratory Syncytial Virus (RSV) Vaccine Pt: or over 60 yrs (1 - 1-dose 75+ series) 2034 HEPATITIS B VACCINE Aged Out No longe r eligible based on patient's age to complete this topic HIB VACCINE Aged Out No longer eligi ble based on patient's age to complete this topic HPV VACCINE Aged Out No longer eligi ble based on patient's age to complete this topic MENINGOCOCCAL (Group B) VACCINE Aged Out No longer eligible b ased on patient's age to complete this topic MENINGOCOCCAL VACCINE Aged Out No alanna khurram eligible based on patient's age to complete this topic Procedures Procedure Name Priority Date/Time Associated Diagnosis [...] CDT EXAMINATION: Digital screening mammogram on 10/29/2009. VICE PRESIDENT QUALITY ASSURANCE: Ekaterina Carreno, RT, RM PRIOR: 2005 FINDINGS: Computer assisted detection was ??utilized. ??The tissue density is fatty. There is no significant change since the prior mammogram. ASSESSMENT: BIRADS Category 1: ??Negative mammogram. RECOMMENDATION: Follow up in one year. [facility] staff will contact and schedule patients with BIRADS categories 0, 4, and 5. Procedure Note Asad Hayes MD / Opal Hope (Ce) - 11/02/2009 EXAMINATION: Digital screening mammogram on 10/29/2009. VICE PRESIDENT QUALITY ASSURANCE: Ekaterina Carreno, RT, RM PRIOR: 2005 FINDINGS: Computer assisted detection was utilized. The tissue density is fatty. There is no significant change since the prior mammogram. ASSESSMENT: BIRADS Category 1: Negative mammogram. RECOMMENDATION: Follow up in one year. [facility] staff will contact and schedule patients with BIRADS categories 0, 4, and 5. Ayan Foster MD MAMMO ORDERABLES from Last 3 Months or Most Recently Relevant to Health Maintenance Care Teams Bulb Weeder Relationship Specialty Start Date End Date Ngozi Arellano MD PCP - General 08/02/21
== END 2024-07-02 15:09 | disposition home or self-care (01) ==
PROVIDERS: PCP Family Medicine; Visit Provider Internal Medicine
DX: E04.2 Nontoxic multinodular goiter (principal)
CPT/HCPCS: 76536

== ENCOUNTER 2024-08-29 14:02 | Outpatient (CLI) | payer MEDICARE, SELFPAY ==
--- OUTSIDE RECORDS SUMMARY | 2024-08-29 14:41 | XMS_ITS | Referral Summary ---
Author Organization [facility] Address [address] [place] [address] Care Team Providers Care Insert Molding Operator Name Role Phone Moncho Wheeler MD Primary Care Provider +1- [phone] Allergies No known active allergies Medications atorvastatin [...] on file Legal Sex Female 1:20 AM KITCHEN FOOD ASSEMBLER Gender Identity Not on file Sexual Orientation Not on file Last Filed Vital Signs Vital Sign Reading Time Taken Comments Blood Pressure 142/92 08/02/2018 9:43 PM KITCHEN FOOD ASSEMBLER Pulse 82 08/02/2018 9:43 PM KITCHEN FOOD ASSEMBLER Temperature 36.5 C (97.7 F) 08/02/2018 8:09 PM KITCHEN FOOD ASSEMBLER Respiratory Rate 16 08/02/2018 9:43 PM KITCHEN FOOD ASSEMBLER Oxygen Saturation 97% 08/02/2018 9:43 PM KITCHEN FOOD ASSEMBLER Inhaled Oxygen Concentration - - Weight 91.7 kg (202 lb 3.2 oz) 12/25/2018 12:56 PM CDT Height 175.3 cm (5' 9 ) 08/02/2018 8:09 PM KITCHEN FOOD ASSEMBLER Body Mass Index 29.86 08/02/2018 8:09 PM KITCHEN FOOD ASSEMBLER Plan of Treatment Not on file Insurance * Guarantor: Alyssa Ashraf Account Type Relation to Patient Date of Phone Billing Address Personal/Family Self 1960 [address] [place] [address] [employer]LL[employer] MEDICARE HMO * Guarantor: Alyssa Ashraf Account Type Relation to Patient Date of Phone Billing Address Personal/Family Self [address] [place] [address] [employer]LL[employer]ARE MEDICARE HMO * Guarantor: Alyssa Ashraf Account Type Relation to Patient Date of Phone Billing Address Personal/Family Self [address] [place] [address] Care Teams Insert Molding Operator Relationship Specialty Start Date End Date Moncho Wheeler MD [address] [place], [place] [id number] PCP - General 02/03/17
--- OUTSIDE RECORDS SUMMARY | 2024-08-29 14:41 | XMS_ITS | Clinical Summary ---
Author Organization [facility] [employer] Address [address] [facility] [place] [address] Care Team Providers Care Military Pay Technician Name Role Phone Ngozi Arellano MD Primary Care Provider Walt ble Source Comments [facility],non-owned Affiliates and Associated Physician Practices is amultiple site organization consisting of ambulatory clinics and hospital sitesin [place], [place], [place] and [place]. This disclosure is being madepursuant to the Care Everywhere program and may not contain all information available regarding this patient. Last updated 18.[facility] [employer] Allergies No known active allergies Medications * [...] 4 hours as needed for Headache. Active [place]-3 Fatty Acids (OMEGA 3) 1200 MG CAPSIndications:Abd ominal pain, epigastric,History of colonic polyps,HLD (hyperlipidemia),Ne uralgia,Screening for breast cancer Take 1200 mg by mouth daily. Active loratadine (CLARITIN) 10 MG tablet Take 1 Tab by mouth once daily. 30 Tab 6 03/28/2011 Active Additional Information Patient taking differently:10 mg OralPRN, Informant: Patient, Reported on 11/03/2020 mometasone (NASONEX) 50 MCG/ACT nasal spray [place] 2 Sprays into each nostril once daily. [...] Health Maintenance Due Date Last Done Comments BONE DENSITY TESTING 1960 COLOGUARD (AGES 45-75) - COL ON CA SCREENING [address] COLONOGRAPHY - COLON CA SCREENING 1959 FIT - COLON CA SCREENING 1959 FLEX SIG - COLON CA SCREENING 1959 HIV SCREENING 1974 HEPATITIS C SCREENING 07/19/1977 DTAP/TDAP/TD VACCINES (1 - Tdap) 1978 PNEUMOCOCCAL VACCINE (1 of 2 - PCV) 1978 LUNG CANCER SCREENING 2009 PNEUMOCOCCAL VACCINE 50+ (1 of 1 - PCV) 2009 ZOSTER VACCINE (1 of 2) 2009 [...] complete this topic MENINGOCOCCAL (Group B) VACCINE SHARED DECISION-MAKING Aged Out No longer eligible based on patient's age to complete this topic MENINGOCOCCAL GROUPS A/C/Y/W VACCINE Aged Out No longer eligible b [...] CDT EXAMINATION: Digital screening mammogram on 10/29/2009. CHIP WASHER: Ekaterina Carreno, RT, RM PRIOR: 2005 FINDINGS: Computer assisted detection was utilized. The tissue density is fatty. There is no significant change since the prior mammogram. ASSESSMENT: BIRADS Category 1: Negative mammogram. RECOMMENDATION: Follow up in one year. [facility] staff will contact and schedule patients with BIRADS categories 0, 4, and 5. Procedure Note Asad Hayes MD / Opal Hope () - 11/02/2009 EXAMINATION: Digital screening mammogram on 10/29/2009. CHIP WASHER: Ekaterina Carreno, RT, RM PRIOR: 2005 FINDINGS: Computer assisted detection was utilized. The tissue density is fatty. There is no significant change since the prior mammogram. ASSESSMENT: BIRADS Category 1: Negative mammogram. RECOMMENDATION: Follow up in one year. [facility] staff will contact and schedule patients with BIRADS categories 0, 4, and 5. Ayan Foster MD MAMMO ORDERABLES from Last 3 Months or Most Recently Relevant to Health Maintenance Care Teams Military Pay Technician Relationship Specialty Start Date End Date Ngozi Arellano MD PCP - General 08/02/21
--- OUTSIDE RECORDS SUMMARY | 2024-08-29 14:41 | XMS_ITS | Clinical Summary ---
Author Organization [facility] Address [address] [place] [address] Care Team Providers Care Program Services Planner Name Role Phone Moncho Wheeler MD Primary Care Provider +1- [phone] Allergies No known active allergies Medications atorvastatin [...] on file Legal Sex Female 1:20 AM BOOKKEEPING MACHINE MECHANIC Gender Identity Not on file Sexual Orientation Not on file Obstetrics History Last Filed Vital Signs Vital Sign Reading Time Taken Comments Blood Pressure 142/92 08/02/2018 9:43 PM BOOKKEEPING MACHINE MECHANIC Pulse 82 08/02/2018 9:43 PM BOOKKEEPING MACHINE MECHANIC Temperature 36.5 C (97.7 F) 08/02/2018 8:09 PM BOOKKEEPING MACHINE MECHANIC Respiratory Rate 16 08/02/2018 9:43 PM BOOKKEEPING MACHINE MECHANIC Oxygen Saturation 97% 08/02/2018 9:43 PM BOOKKEEPING MACHINE MECHANIC Inhaled Oxygen Concentration - - Weight 91.7 kg (202 lb 3.2 oz) 12/25/2018 12:56 PM CDT Height 175.3 cm (5' 9 ) 08/02/2018 8:09 PM BOOKKEEPING MACHINE MECHANIC Body Mass Index 29.86 08/02/2018 8:09 PM BOOKKEEPING MACHINE MECHANIC Plan of Treatment Not on file Insurance * Guarantor: Alyssa Ashraf Account Type Relation to Patient Date of Phone Billing Address Personal/Family Self 1960 [address] [place] [address] [employer]LL[employer] MEDICARE HMO * Guarantor: Alyssa Ashraf Account Type Relation to Patient Date of Phone Billing Address Personal/Family Self [address] [place] [address] [employer]LL[employer]ARE MEDICARE HMO * Guarantor: Alyssa Ashraf Account Type Relation to Patient Date of Phone Billing Address Personal/Family Self [address] [place] [address] Care Teams Program Services Planner Relationship Specialty Start Date End Date Moncho Wheeler MD [address] [place], [place] [id number] PCP - General 02/03/17
[2024-08-29 15:04] LABS: Alanine Aminotransferase 19 U/L (6-35); Albumin Level 4.5 g/dL (3.5-5.1); Alkaline Phosphatase 82 U/L (38-126); Anion Gap 7 mmol/L (4-12); Aspartate Amino Transferase 24 U/L (14-36); Bilirubin,Total 0.5 mg/dL (0.2-1.3); Blood Urea Nitrogen 11 mg/dL (7-17); Calcium 9.7 mg/dL (8.4-10.2); Carbon Dioxide 30 mmol/L (22-30); Chloride 104 mmol/L (98-107); Cholesterol 182 mg/dL (0-200); Estimated Glomerular Filt Rate 59; Glucose 97 mg/dL (65-110); HDL Direct 54 mg/dL; Potassium 4.2 mmol/L (3.4-5.0); Sodium 141 mmol/L (137-145); Triglycerides 127 mg/dL (<150)
[2024-08-29 15:16] LABS: LDL Cholesterol Direct 94 mg/dL
[2024-08-29 15:17] LABS: Basophils Percent Auto 0.6 % (0.2-1.2); Eosinophils Absolute Auto 0.2 K/mm3 (0-0.3); Eosinophils Percent Auto 2.2 % (0-4.4); Hemoglobin 14.6 g/dL (12.0-15.0); Immature Granulocyte Absolute 0.01 K/mm3 (0.00-0.031); Immature Granulocyte Percent A 0.1 % (0-0.5); Lymphocytes Absolute Auto 3.25 K/mm3 (0.9-3.2); Lymphocytes Percent Auto 48.7 % (18.3-44.2); Mean Corpuscular HGB Conc 32.4 g/dl (32-36); Mean Corpuscular Hemoglobin 30.2 pg (26-34); Mean Corpuscular Volume 93.2 fl (80-100); Mean Platelet Volume 10.2 fl (7.4-10.4); Monocytes Absolute Auto 0.5 K/mm3 (0.1-0.6); Monocytes Percent Auto 7.9 % (2.6-8.5); Neutrophils Absolute Auto 2.7 K/mm3 (1.3-6.7); Neutrophils Percent Auto 40.5 % (45.5-73.1); Platelet Count Result 231 k/mm3 (150-375); Red Blood Count 4.83 M/mm3 (4.2-5.4); Red Cell Distribution Width 12.8 % (11.5-14.5); White Blood Count 6.7 K/mm3 (4.5-10.0)
[2024-08-29 15:48] LABS: Hemoglobin A1C 6.1 % (<5.7)
[2024-08-29 16:35] LABS: Creatinine Urine 158.4 mg/dL
[2024-08-29 16:38] LABS: Microalbumin Urine Random 9.5 mg/L (0-16.7)
== END 2024-08-29 14:03 | disposition home or self-care (01) ==
PROVIDERS: PCP Family Medicine; Visit Provider Nurse Practitioner Family
DX: E11.9 Type 2 diabetes mellitus without complications (principal); E78.5 Hyperlipidemia, unspecified; I10 Essential (primary) hypertension
CPT/HCPCS: 36415; 80053; 80061; 82043; 83036; 85025

== ENCOUNTER 2025-02-25 15:14 | Outpatient (CLI) | payer MEDICARE, SELFPAY ==
--- OUTSIDE RECORDS SUMMARY | 2005-10-27 06:00 | XMS_ITS | Continuity of Care Document ---
Author Organization [facility] Address [address] [facility] [address] [place] [address] Phone Care Team Providers Care Cs Associate Name Role Phone Vy Esposito Unavailable Unavailable Advance Directives Directive Yes / No Effective Date File Name No Information Encounters Encounter Description Practice Location Reason(s) For Visit Diagnoses Date Provider Providers Copied on Encounter [facility], [address], [place], [place], [id number], [place] tel:[phone] [address] [facility] No Information 6 Cate Mcclellan. [facility] , [address], [place], [address], [place]. tel:[phone] Referring Provider: Vy Monteiro, [address] [place] [address] [address], [place], [place], [facility]. tel:[phone] Family History Family Member Type Diagnosis Age At Onset No Information Payers Payer name Insurance type Covered republican ID Authoriza tion(s) [place] [id number] Social History Type Description Quantity Date Captured Comments Sex Female Smoking Status No Information Chief Complaint And Reason For Visit No Information Reason For Referral Reason For Referral No Information History Of Present Illness Encounter Date Complaint History Of Prese nt Illness No Information Functional Status Date Functional Assessmen t No Information Instructions Date Instruction Additional Infor mation No Information Assessments Type Assessment Date No Information Patient Care Teams Name Effective Dates (start - stop) Status Members No Information
--- NOTE | ~2025-02-25 | CT_ITS ---
EXAMINATION: CT sinus wo con COMPARISON: None HISTORY: R51.9 - Headache, unspecified TECHNIQUE: Axial images were obtained without IV contrast. Sagittal, coronal reconstruction images were obtained from the axial views. CT scan performed using dose optimization techniques including the following automated exposure control; adjustment of mA and/or kV; use of iterative reconstruction technique. Automatic exposure control was used to reduce radiation dose. Permanent radiation dose record is archived to PACS. FINDINGS: The visualized brain parenchyma appears unremarkable. The visualized optic globes and remaining soft tissues appear unremarkable. The frontal sinuses are diminutive. Minimal mucosal thickening in the ethmoidal air cells. Maxillary sinus is unremarkable. Ostiomeatal complex is patent. Nasal septum slightly deviated to the left, no significant thickening of the nasal turbinates with narrowing of the nasal cavities. No osseous destruction or wall thickening. The sphenoid sinuses appear unremarkable. IMPRESSION: Minimal sinusitis Reviewed, dictated and finalized at location A. IMPRESSION: Minimal sinusitis
--- OUTSIDE RECORDS SUMMARY | 2025-02-25 16:37 | XMS_ITS | Clinical Summary ---
Author Organization [facility] Address [address] [place] [address] Care Team Providers Care Dry Plasterer Helper Name Role Phone Moncho Wheeler MD Primary Care Provider +1- [phone] Allergies No known active allergies Medications atorvastatin [...] on file Legal Sex Female 1:20 AM MEDICAL CLERK Gender Identity Not on file Sexual Orientation Not on file Obstetrics History Last Filed Vital Signs Vital Sign Reading Time Taken Comments Blood Pressure 142/92 08/02/2018 9:43 PM MEDICAL CLERK Pulse 82 08/02/2018 9:43 PM MEDICAL CLERK Temperature 36.5 C (97.7 F) 08/02/2018 8:09 PM MEDICAL CLERK Respiratory Rate 16 08/02/2018 9:43 PM MEDICAL CLERK Oxygen Saturation 97% 08/02/2018 9:43 PM MEDICAL CLERK Inhaled Oxygen Concentration - - Weight 91.7 kg (202 lb 3.2 oz) 12/25/2018 12:56 PM CDT Height 175.3 cm (5' 9) 08/02/2018 8:09 PM MEDICAL CLERK Body Mass Index 29.86 08/02/2018 8:09 PM MEDICAL CLERK Plan of Treatment Not on file Insurance * Guarantor: Alyssa Ashraf Account Type Relation to Patient Date of Phone Billing Address Personal/Family Self 1960 [address] [place] [address] [employer] MEDICARE HMO * Guarantor: Alyssa Ashraf Account Type Relation to Patient Date of Phone Billing Address Personal/Family Self [address] [place] [address] [employer] MEDICARE HMO * Guarantor: Alyssa Ashraf Account Type Relation to Patient Date of Phone Billing Address Personal/Family Self [address] [place] [address] Care Teams Dry Plasterer Helper Relationship Specialty Start Date End Date Moncho Wheeler MD [address] [place], [place] [id number] PCP - General 02/03/17
--- OUTSIDE RECORDS SUMMARY | 2025-02-25 16:37 | XMS_ITS | Clinical Summary ---
Author Organization [facility] [employer] Address [address] [place] [address] Care Team Providers Care Railway Signalling Engineer Name Role Phone Ngozi Arellano MD Primary Care Provider Walt ble Source Comments [facility],non-owned Affiliates and Associated Physician Practices is amultiple site organization consisting of ambulatory clinics and hospital sitesin [place], [place], [place] and [place]. This disclosure is being madepursuant to the Care Everywhere program and may not contain all information available regarding this patient. Last updated 18.[facility] [employer] Allergies No known active allergies Medications * Be aware that medications may not be up to date on this document. Alwaysverify current medications with the patient. aspirin-acetami nophen-caffeine (EXCEDRIN MIGRAINE) 250-250-65 MG tabletIndicatio ns:Abdominal pain, epigastric,Hist ory of colonic polyps,HLD (hyperlipidemia ),Neuralgia,Scr eening for breast cancer Take 1 Tab by mouth every 4 hours as needed for Headache. Active [place]-3 Fatty Acids (OMEGA 3) 1200 MG CAPSIndications :Abdominal pain, epigastric,Hist ory of colonic polyps,HLD (hyperlipidemia ),Neuralgia,Scr eening for breast cancer Take 1200 mg by mouth daily. Active loratadine (CLARITIN) 10 MG tablet Take 1 Tab by mouth once daily. 30 Tab 6 1 Active Additional Information Patient taking differently:10 mg OralPRN, Informant: Patient, Reported on 11/03/2020 mometasone (NASONEX) 50 MCG/ACT nasal spray Adrian 2 Sprays into each nostril once daily. 3 Inhaler 6 1 Active Additional Information Patient taking differently:2 spray Each NostrilPRN, Informant: Patient, Reported on 11/03/2020 Ergocalciferol (VITAMIN D PO) once daily. Act nida ALPRAZolam (XANAX) 1 MG tabletIndicatio ns:Anxiety state Take 1 Tab by mouth 2 times daily. 60 Tab 0 2 Active metFORMIN (GLUCOPHAGE) 500 MG tablet 9 Active albuterol HFA (PROVENTIL;VENT SAMMY;PROAIR) 108 (90 Base) MCG/ACT inhaler INL 2 PFS PO Q 4 TO 6 H PRF SOB OR WHZ 0 Active omeprazole (PRILOSEC) 40 MG capsule Take 40 mg by mouth as needed 1 Active meloxicam (MOBIC) 7.5 MG tablet Take 7.5 mg by mouth once daily 1 Active cyclobenzaprine (FLEXERIL) 10 MG tablet Take 10 mg by mouth 3 times daily as needed FOR MUSCLE SPASM 1 Active cetirizine (ZYRTEC) 10 MG tablet Take 10 mg by mouth once daily 1 Active timolol gel-forming (TIMOPTIC-XE) 0.5 % ophthalmic gel-forming Instill 1 (one) drop into both eyes once daily 15 mL 4 1 Active atorvastatin (LIPITOR) 20 MG tablet Take 20 mg by mouth once daily 1 Active latanoprost (XALATAN) 0.005 % ophthalmic solution Instill 1 (one) drop into both eyes at bedtime 7.5 mL 4 1 Active Active Problems Problem Noted Date Diagnosed [...] drink = 0.6 oz pur e alcohol) Comments No Sex and Gender Information Value Date Recorded Sex Assigned at Not on file 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 KNOT PICKER CLOTH: RT Alecia, RM PRIOR: 2005 FINDINGS: Computer assisted detection was utilized. The tissue density is fatty. There is no significant change since the prior mammogram. ASSESSMENT: BIRADS Category 1: Negative mammogram. RECOMMENDATION: Follow up in one year. [facility] staff will contact and schedule patients with BIRADS categories 0, 4, and 5. Procedure Note Asad Hayes MD / Opal Hope (Ce) - 11/02/2009 EXAMINATION: Digital screening mammogram on 10/29/2009. KNOT PICKER CLOTH: RT Alecia, RM PRIOR: 2005 FINDINGS: Computer assisted detection was utilized. The tissue density is fatty. There is no significant change since the prior mammogram. ASSESSMENT: BIRADS Category 1: Negative mammogram. RECOMMENDATION: Follow up in one year. [facility] staff will contact and schedule patients with BIRADS categories 0, 4, and 5. Ayan Foster MD MAMMO ORDERABLES Edited Resu lt - Final from Last 3 Months or Most Recently Relevant to Health Maintenance Insurance * Guarantor: Alyssa Flor Account Type Relation to Patient Date of Phone Billing Address Personal/Family Self 1960 [address] [facility] [facility] [address] Care Teams Railway Signalling Engineer Relationship Specialty Start Date End Date Ngozi Arellano MD PCP - General 08/02/21
== END 2025-02-25 15:15 | disposition home or self-care (01) ==
PROVIDERS: PCP Family Medicine; Visit Provider Otolaryngology
DX: R51.9 Headache, unspecified (principal); R44.8 Other symptoms and signs involving general sensations and perceptions; J34.2 Deviated nasal septum; J34.3 Hypertrophy of nasal turbinates
CPT/HCPCS: 70486

== ENCOUNTER 2025-03-07 13:20 | Outpatient (CLI) | payer MEDICARE, SELFPAY ==
--- OUTSIDE RECORDS SUMMARY | 2005-10-27 06:00 | XMS_ITS | Continuity of Care Document ---
Author Organization [facility] Address [address] [facility] [address] [place] [address] Phone Care Team Providers Care Health Technician Hearing Name Role Phone Vy Esposito Unavailable Unavailable Advance Directives Directive Yes / No Effective Date File Name No Information Encounters Encounter Description Practice Location Reason(s) For Visit Diagnoses Date Provider Providers Copied on Encounter [facility], [address], [place], [place], [id number], [place] tel:[phone] [facility] No Information 6 Cate Mcclellan. [facility] , [address], [place], [address], [place]. tel:[phone] Referring Provider: Vy Monteiro, [address] [place] [address] [address], [place], [place], [facility]. tel:[phone] Family History Family Member Type Diagnosis Age At Onset No Information Payers Payer name Insurance type Covered alliance party ID Authoriza tion(s) [place] [id number] Social History Type Description Quantity Date Captured [...]
--- OUTSIDE RECORDS SUMMARY | 2025-03-07 13:23 | XMS_ITS | Clinical Summary ---
Author Organization [facility] [employer] Address [address] [place] [address] Care Team Providers Care County Engineer Name Role Phone Ngozi Arellano MD Primary Care Provider Walt ble Source Comments [facility],non-owned Affiliates and Associated Physician Practices is amultiple site organization consisting of ambulatory clinics and hospital sitesin [place], [place], [place] and [place]. This disclosure is being madepursuant to the Care Everywhere program and may not contain all information available regarding this patient. Last updated 18.[facility] [employer] Allergies No known active allergies Medications * Be aware that medications may not be up to date on this document. Alwaysverify current medications with the patient. aspirin-acetami nophen-caffeine (EXCEDRIN MIGRAINE) 250-250-65 MG tabletIndicatio ns:Abdominal pain, epigastric,Hist ory of colonic polyps,HLD (hyperlipidemia ),Neuralgia,Scr eening for breast cancer Take 1 Tab by mouth every 4 hours as needed for Headache. Active [place]-3 Fatty Acids (OMEGA 3) 1200 MG CAPSIndications :Abdominal pain, epigastric,Hist ory of colonic polyps,HLD (hyperlipidemia ),Neuralgia,Scr eening for breast cancer Take 1200 mg by mouth daily. Active loratadine (CLARITIN) 10 MG tablet Take 1 Tab by mouth once daily. 30 Tab 6 1 Active Additional Information Patient taking differently:10 mg OralPRN, Informant: Patient, Reported on 11/03/2020 mometasone (NASONEX) 50 MCG/ACT nasal spray [place] 2 Sprays into each nostril once daily. 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 INTRAVENOUS THERAPY NURSE: RT Alecia, RM PRIOR: 2005 FINDINGS: Computer assisted detection was utilized. The tissue density is fatty. There is no significant change since the prior mammogram. ASSESSMENT: BIRADS Category 1: Negative mammogram. RECOMMENDATION: Follow up in one year. [facility] staff will contact and schedule patients with BIRADS categories 0, 4, and 5. Procedure Note Asad Hayes MD / Opal Hope (Ce) - 11/02/2009 EXAMINATION: Digital screening mammogram on 10/29/2009. INTRAVENOUS THERAPY NURSE: RT Alecia, RM PRIOR: 2005 FINDINGS: Computer assisted detection was utilized. The tissue density is fatty. There is no significant change since the prior mammogram. ASSESSMENT: BIRADS Category 1: Negative mammogram. RECOMMENDATION: Follow up in one year. [facility] staff will contact and schedule patients with BIRADS categories 0, 4, and 5. Ayan Foster MD MAMMO ORDERABLES Edited Resu lt - Final from Last 3 Months or Most Recently Relevant to Health Maintenance Insurance * Guarantor: Alyssa Flor Account Type Relation to Patient Date of Phone Billing Address Personal/Family Self 1960 [address] [facility] [address] Care Teams County Engineer Relationship Specialty Start Date End Date Ngozi Arellano MD PCP - General 08/02/21
--- OUTSIDE RECORDS SUMMARY | 2025-03-07 13:23 | XMS_ITS | Clinical Summary ---
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 Gender Identity Not on file Sexual Orientation Not on file Obstetrics History Last Filed Vital Signs Vital Sign Reading Time Taken Comments Blood Pressure 142/92 08/02/2018 9:43 PM LIVESTOCK FARM MANAGER Pulse 82 08/02/2018 9:43 PM LIVESTOCK FARM MANAGER Temperature 36.5 C (97.7 F) 08/02/2018 8:09 PM LIVESTOCK FARM MANAGER Respiratory Rate 16 08/02/2018 9:43 PM LIVESTOCK FARM MANAGER Oxygen Saturation 97% 08/02/2018 9:43 PM LIVESTOCK FARM MANAGER Inhaled Oxygen Concentration - - Weight 91.7 kg (202 lb 3.2 oz) 12/25/2018 12:56 PM CDT Height 175.3 cm (5' 9) 08/02/2018 8:09 PM LIVESTOCK FARM MANAGER Body Mass Index 29.86 08/02/2018 8:09 PM LIVESTOCK FARM MANAGER Plan of Treatment Not on file Insurance * Guarantor: Alyssa Ashraf Account Type Relation to Patient Date of Phone Billing Address Personal/Family Self 1960 [address] [place] [id number] [employer] MED[employer] HMO * Guarantor: Alyssa Ashraf Account Type Relation to Patient Date of Phone Billing Address Personal/Family Self [address] [place] [address] [employer] MEDICARE HMO * Guarantor: Alyssa Ashraf Account Type Relation to Patient Date of Phone Billing Address Personal/Family Self [address] [place] [address] Care Teams Board Certified Behavioral Analyst Relationship Specialty Start Date End Date Moncho Wheeler MD [address] [place] [address] PCP - General 02/03/17
--- NOTE | 2025-03-07 13:35 | ECG_ITS ---
Test Date: 2025-03-07 13:46:40 Measurements Intervals [place] Rate: 93 P: 61 FL: 149 QRS: 38 QRSD: 90 T: 60 QT: 370 QTc: 462 Interpretive Statements SINUS RHYTHM NONSPECIFIC T-WAVE ABNORMALITY No previous ECG available for comparison Electronically Signed On 03-07-2025 20:04:04 CDT by Selina Eaton M.D.
[2025-03-07 14:05] LABS: Anion Gap 7 mmol/L (4-12); Blood Urea Nitrogen 21 mg/dL (7-17); Calcium 9.4 mg/dL (8.4-10.2); Carbon Dioxide 27 mmol/L (22-30); Chloride 104 mmol/L (98-107); Estimated Glomerular Filt Rate > 60; Glucose 93 mg/dL (65-110); Potassium 4.2 mmol/L (3.4-5.0); Sodium 138 mmol/L (137-145)
== END 2025-03-07 13:21 | disposition home or self-care (01) ==
PROVIDERS: PCP Family Medicine; Visit Provider Anesthesiology
DX: Z01.818 Encounter for other preprocedural examination (principal); E11.36 Type 2 diabetes mellitus with diabetic cataract; E78.5 Hyperlipidemia, unspecified; F17.200 Nicotine dependence, unspecified, uncomplicated; R93.1 Abnormal findings on diagnostic imaging of heart and coronary circulation
CPT/HCPCS: 36415; 80048; 93005

== ENCOUNTER 2025-03-17 11:02 | Outpatient (NON) | payer MEDICARE, SELFPAY ==
--- NOTE | 2025-03-17 | S_PTH ---
PATIENT: Alyssa Ashraf LOC: [facility] #:[id number] AGE/SX: 64/F ROOM: RE03/17/[address]: Dave Membreno MD : 1960 BED: DIS: 03/17/2025 SPEC #: [id number] RECD: 03/18/25 11:39 STATUS: BERNIE REQ #: [id number] FIDEL: 03/17/25 00:[address]: Dave Membreno DEPT: [facility] Surgical RECD BY: Errol Shaffer ENTERED: 03/18/25 11:41 SP TYPE: Surgical OTHR DR: Nasir Dunlap MD Tissues: A - LESION B - LESION Procedures: Hematoxylin and Eosin Stain Gross and Microscopic Level 4
--- OUTSIDE RECORDS SUMMARY | 2025-03-18 12:18 | XMS_ITS | Clinical Summary ---
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 Gender Identity Not on file Sexual Orientation Not on file Obstetrics History Last Filed Vital Signs Vital Sign Reading Time Taken Comments Blood Pressure 142/92 08/02/2018 9:43 PM CAR SALESPERSON Pulse 82 08/02/2018 9:43 PM CAR SALESPERSON Temperature 36.5 C (97.7 F) 08/02/2018 8:09 PM CAR SALESPERSON Respiratory Rate 16 08/02/2018 9:43 PM CAR SALESPERSON Oxygen Saturation 97% 08/02/2018 9:43 PM CAR SALESPERSON Inhaled Oxygen Concentration - - Weight 91.7 kg (202 lb 3.2 oz) 12/25/2018 12:56 PM CDT Height 175.3 cm (5' 9) 08/02/2018 8:09 PM CAR SALESPERSON Body Mass Index 29.86 08/02/2018 8:09 PM CAR SALESPERSON Plan of Treatment Not on file Insurance * Guarantor: Alyssa Ashraf Account Type Relation to Patient Date of Phone Billing Address Personal/Family Self 1960 [address] [place] [id number] [employer] H[employer] * Guarantor: Alyssa Ashraf Account Type Relation to Patient Date of Phone Billing Address Personal/Family Self [address] [place] [address] [employer] HMO * Guarantor: Alyssa Ashraf Account Type Relation to Patient Date of Phone Billing Address Personal/Family Self [address] [place] [address] Care Teams Wood Bucker Relationship Specialty Start Date End Date Moncho Wheeler MD [address] [place] [address] PCP - General 02/03/17
--- OUTSIDE RECORDS SUMMARY | 2025-03-18 12:18 | XMS_ITS | Clinical Summary ---
Author Organization [facility] [employer] Address [address] [place] [address] Care Team Providers Care Host Coordinator Name Role Phone Ngozi Arellano MD Primary Care Provider Walt ble Source Comments [facility],non-owned Affiliates and Associated Physician Practices is amultiple site organization consisting of ambulatory clinics and hospital sitesin [place], [place] and [place]. This disclosure is being madepursuant to the Care Everywhere program and may not contain all information available regarding this patient. Last updated 18.[facility] Allergies No known active allergies Medications * Be aware that medications may not be up to date on this document. Alwaysverify current medications with the patient. aspirin-acetami nophen-caffeine (EXCEDRIN MIGRAINE) 250-250-65 MG tabletIndicatio ns:Abdominal pain, epigastric,Hist ory of colonic polyps,HLD (hyperlipidemia ),Neuralgia,Scr eening for breast cancer Take 1 Tab by mouth every 4 hours as needed for Headache. Active [place]-3 Fatty Acids (OMEGA 3) 1200 MG CAPSIndications :Abdominal pain, epigastric,Hist ory of colonic polyps,HLD (hyperlipidemia ),Neuralgia,Scr eening for breast cancer Take 1200 mg by mouth daily. Active loratadine (CLARITIN) 10 MG tablet Take 1 Tab by mouth once daily. 30 Tab 6 1 Active Additional Information Patient taking differently:10 mg OralPRN, Informant: Patient, Reported on 11/03/2020 mometasone (NASONEX) 50 MCG/ACT nasal spray Ira 2 Sprays into each nostril once daily. 3 Inhaler 6 1 Active Additional Information Patient taking differently:2 spray Each NostrilPRN, Informant: Patient, Reported on 11/03/2020 Ergocalciferol (VITAMIN D PO) once daily. Act nida ALPRAZolam (XANAX) 1 MG tabletIndicatio ns:Anxiety state Take 1 Tab by mouth 2 times daily. 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 POWER LINEWORKER: RT Alecia, RM PRIOR: 2005 FINDINGS: Computer assisted detection was utilized. The tissue density is fatty. There is no significant change since the prior mammogram. ASSESSMENT: BIRADS Category 1: Negative mammogram. RECOMMENDATION: Follow up in one year. [facility] staff will contact and schedule patients with BIRADS categories 0, 4, and 5. Procedure Note Asad Hayes MD / Opal Hope (Ce) - 11/02/2009 EXAMINATION: Digital screening mammogram on 10/29/2009. POWER LINEWORKER: RT Alecia, RM PRIOR: 2005 FINDINGS: Computer assisted detection was utilized. The tissue density is fatty. There is no significant change since the prior mammogram. ASSESSMENT: BIRADS Category 1: Negative mammogram. RECOMMENDATION: Follow up in one year. [facility] staff will contact and schedule patients with BIRADS categories 0, 4, and 5. Ayan Foster MD MAMMO ORDERABLES Edited Resu lt - Final from Last 3 Months or Most Recently Relevant to Health Maintenance Insurance * Guarantor: Alyssa Flor Account Type Relation to Patient Date of Phone Billing Address Personal/Family Self 1960 [address] [facility] [address] [place] [address] Care Teams Host Coordinator Relationship Specialty Start Date End Date Ngozi Arellano MD PCP - General 08/02/21
== END 2025-03-17 11:03 | disposition home or self-care (01) ==
PROVIDERS: PCP Family Medicine; Visit Provider Otolaryngology
DX: J38.1 Polyp of vocal cord and larynx (principal); J39.2 Other diseases of pharynx
CPT/HCPCS: 88305

== ENCOUNTER 2025-03-18 06:02 | Day surgery (SDC) | payer MEDICARE, SELFPAY ==
[2025-03-05 14:08] VITALS: BMI 27.8
--- NOTE | 2025-03-16 15:48 | PM.IMHP ---
H&P: HPI History of Present Illness Date/Time: 03/16/25 15:48 Chief Complaint: Pharyngeal cyst, bilateral vocal cord polyps Narrative: planned surgical procedure Review of Systems Review of Systems: All systems reviewed & are unremarkable except as noted in HPI and below [facility] Past Medical History Medical History Osteopenia of femoral neck Emphysema with chronic bronchitis Type 2 diabetes mellitus with diabetic cataract Glaucoma Follows with [facility] [place] - Dr Linares Thyroid nodule Dr Coughlin - [facility]. Osteoarthritis of multiple joints Hyperlipidemia Depression GERD without esophagitis Family History Family History Mother Hypertension Cerebrovascular accident Depression Family history of seizure disorder Father Cerebrovascular accident Family history of Alzheimer's disease Family history of heart disease in male family member before age 55 Hypertension Acute myocardial infarction Social History Social History Smoking packs per day: 1 Smoking cigarettes per day: 20.0 Years smoked: 40 Smoking pack-years: 40.00 Smoking status: Current every day smoker Tobacco type: cigarettes Second hand tobacco smoke exposure: Yes Alcohol intake: never Substance use: never Substance use type: does not use Lack of Transportation: No Lack of Food: Never True Current Housing: I Have Housing Concerned About Future Housing: No Difficulty Paying Gas/Electric Bills: No Difficulty Paying for Meds: No Currently Unemployed: No Education: Associate Degree Difficulty w/ Childcare or Family Care: No Living arrangements: with family Gender identity (if verbalized by the patient): Female Spiritual care concerns: No Meds Home Medications and Allergies Home Medications ?Medication ?Instructions ?Recorded ?Confirmed ?Type blood-glucose meter (Blood Glucose #1 ea 02/23/21 01/28/25 Rx Monitoring kit) lancets #100 ea 05/31/21 01/28/25 Rx blood sugar diagnostic (OneTouch #100 ea 02/09/24 01/28/25 Rx Ultra Test strips) cetirizine 10 mg tablet 10 mg PO DAILY PRN allergy symptoms 03/08/24 03/05/25 History cholecalciferol (vitamin D3) 50 50 mcg PO DAILY 10/04/24 03/05/25 History mcg (2,000 unit) capsule metformin 500 mg tablet 500 mg PO BID #180 tabs 10/11/24 03/05/25 Rx cyclobenzaprine 10 mg tablet 10 mg PO TID PRN muscle spasm #90 01/20/25 03/05/25 Rx tabs albuterol sulfate 90 mcg/actuation 2 puff inhalation Q4-6H PRN 02/11/25 03/05/25 Rx aerosol inhaler shortness of breath or wheezing #42.5 grams fluticasone 250 mcg-salmeterol 50 1 inh inhalation BID PRN shortness 03/05/25 03/05/25 History mcg/dose blistr powdr for of breath inhalation (Advair Diskus) fluticasone propionate 50 1 spray intranasal DAILY 03/05/25 03/05/25 History mcg/actuation nasal spray,suspension pravastatin 20 mg tablet 20 mg PO DAILY 03/05/25 03/05/25 History Allergies Allergy/AdvReac Type Severity Reaction Status Date / Time atorvastatin AdvReac muscle Verified 03/05/25 14:05 burning in thighs Exam Narrative: vocal cord polyps, pharyngeal cyst Assessment and Plan Assessment and plan (1) Pharyngeal cyst: Code(s): J39.2 - Other diseases of pharynx Status: Acute Assessment and Plan: sign will be OR for endoscopic as well as Microdirect laryngoscopy. Total operative time less than an hour maybe 1 hour. Anesthesia general any the small endotracheal tube if possible. Risks were discussed bleeding infection damage to any structure during induction and maintenance and damage to any structure above the clavicles by my house by myself as well as damage to any structures during induction and remains anesthesia including vocal cord paralysis. The polyps can recur, I may not be able to excise all the polyps. Her voice may absolutely worsen. If scar tissue forms and unfavorable way. The polyps will absolutely reform if the patient continues to smoke. Bleeding infection and are always risks. Pharyngotomy as risk. Necessitating NPO status and transfer to an academic facility. Patient voiced understanding of these risks and agreed. (2) Vocal cord polyps: Code(s): J38.1 - Polyp of vocal cord and larynx Status: Acute
[2025-03-18] VITALS (8 sets, daily range): BP systolic 143–170; BP diastolic 61–95; PULSE 84–106; RESP 16–20; TEMP 36.1–36.6; O2SAT 94–100
[2025-03-18] MEDS: LACTATED RINGERS 1,000 ML 30 ML IV CONT (06:19)
--- NOTE | 2025-03-18 07:10 | WPDANESEPPF ---
Anes - Initial Pre Proc Eval Procedure: Operation Date: 03/18/25 07:30 Proposed Procedures p Micro Direct Laryngoscopy with Excision Pharyngeal Cyst and Bilateral Vocal Cord Polyps - Dave Membreno MD Date/Time: 03/18/25 07:10 Surgeon: Dave Membreno MD Pre Op Diagnosis: Polyp-Vocal Cord and Larynx Patient Data Age: 64 Gender: F Height: 1.75 m Weight: 85.5 kg Last Vital Signs Temp 97.8 F 03/18/25 06:15 Pulse 92 03/18/25 06:15 Resp 16 03/18/25 06:15 BP 147/80 H 03/18/25 06:15 Pulse Ox 100 03/18/25 06:15 O2 Del Method Room Air 03/18/25 06:15 Allergies Allergy/AdvReac Type Severity Reaction Status Date / Time atorvastatin AdvReac muscle Verified 03/18/25 06:14 burning in thighs Home Medications ?Medication ?Instructions ?Recorded ?Confirmed ?Type blood-glucose meter (Blood Glucose #1 ea 02/23/21 01/28/25 Rx Monitoring kit) lancets #100 ea 05/31/21 01/28/25 Rx blood sugar diagnostic (OneTouch #100 ea 02/09/24 01/28/25 Rx Ultra Test strips) cetirizine 10 mg tablet 10 mg PO DAILY PRN allergy symptoms 03/08/24 03/18/25 History cholecalciferol (vitamin D3) 50 50 mcg PO DAILY 10/04/24 03/18/25 History mcg (2,000 unit) capsule metformin 500 mg tablet 500 mg PO BID #180 tabs 10/11/24 03/18/25 Rx cyclobenzaprine 10 mg tablet 10 mg PO TID PRN muscle spasm #90 01/20/25 03/18/25 Rx tabs albuterol sulfate 90 mcg/actuation 2 puff inhalation Q4-6H PRN 02/11/25 03/18/25 Rx aerosol inhaler shortness of breath or wheezing #42.5 grams fluticasone 250 mcg-salmeterol 50 1 inh inhalation BID PRN shortness 03/05/25 03/18/25 History mcg/dose blistr powdr for of breath inhalation (Advair Diskus) fluticasone propionate 50 1 spray intranasal DAILY 03/05/25 03/18/25 History mcg/actuation nasal spray,suspension pravastatin 20 mg tablet 20 mg PO DAILY 03/05/25 03/18/25 History Laboratory Tests 03/18/25 06:23 POC Capillary Glucose 93 mg/dl (65-105) ECG: nonspecific T wave abnormality without chest pain or shortness of breath on 1 to 2 fligts of stairs Patient hx anesthesia problems: none Family hx anesthesia problems: none Results Review: All pre-operative results and documents have been reviewed as part of the pre-operative evaluation. [facility] Past Medical History Medical History Osteopenia of femoral neck Emphysema with chronic bronchitis Type 2 diabetes mellitus with diabetic cataract Glaucoma Follows with [facility] [place] - Dr Linares Thyroid nodule Dr Coughlin - [facility]. Osteoarthritis of multiple joints Hyperlipidemia Depression GERD without esophagitis Family History Family History Mother Hypertension Cerebrovascular accident Depression Family history of seizure disorder Father Cerebrovascular accident Family history of Alzheimer's disease Family history of heart disease in male family member before age 55 Hypertension Acute myocardial infarction Social History Social History Smoking packs per day: 1 Smoking cigarettes per day: 20.0 Years smoked: 40 Smoking pack-years: 40.00 Smoking status: Current every day smoker Tobacco type: cigarettes Second hand tobacco smoke exposure: No Alcohol intake: never Substance use: never Substance use type: does not use Lack of Transportation: No Lack of Food: Never True Current Housing: I Have Housing Concerned About Future Housing: No Difficulty Paying Gas/Electric Bills: No Difficulty Paying for Meds: No Currently Unemployed: No Education: Associate Degree Difficulty w/ Childcare or Family Care: No Living arrangements: alone Gender identity (if verbalized by the patient): Female Spiritual care concerns: No Anes - Eval Final PreProcedure Day of Procedure 03/18/25 07:10 Heart: regular rate and rhythm Lungs: clear to auscultation Airway: Mallampati scale class III Neurological: alert and oriented Last oral intake: >/= 8 hours ASA classification: III Anesthetic plan: proceed Anesthesia type and monitoring: general Results Review: All pre-operative results and documents have been reviewed as part of the pre-operative evaluation. Informed Consent: The patient's anesthetic plan and its attendant risks and benefits were discussed with the patient/family/POA. Questions were solicited and answers provided to the satisfaction of the patient/family/POA.
--- NOTE | 2025-03-18 07:27 | WPDHPUPDATE1 ---
History and Physical Update Update Date/Time: 03/18/25 07:27 History and Physical has been reviewed, including an updated exam of the patient. There are NO changes in the patient's condition. Risks, benefits, and alternatives have been discussed and questions answered. Patient agrees to proceed with procedure.
[2025-03-18] MEDS: ceFAZolin SODIUM 2 GM/20 ML SW SYRINGE IV PUSH (07:34)
[2025-03-18] MEDS: OXYMETAZOLINE HCL 0.05% NAS 15 ML BTL (*BKC) 1 SPRAY NASAL (08:10)
[2025-03-18] MEDS: ALBUTEROL SULFATE NEB 2.5 MG/3 ML INH (09:20)
--- NOTE | 2025-03-18 09:23 | SUR.PHASEI ---
PT COUGHING ENTERING PACU. DR LAU GAVE VORB FOR ALBUTEROL TREATMENT. PT ORAL SUCTIONED PINK/WHITE THIN SECRETIONS WITH 14 FR SX CATH. TOLERATED WELL. HOB AT 30 DEGREES. 0925; PT MUCH LESS COUGHING NOW. DENIES PAIN OR SOB. HOB AT 45 DEGREES NOW.
--- NOTE | 2025-03-18 09:30 | SUR.PHASEI ---
PT NO LONGER COUGHING. RESP EVEN UNLABORED.
--- NOTE | 2025-03-18 09:32 | P.OP_ITS ---
Procedure Note - Detailed Date of Procedure 03/18/25 Pre-op Diagnosis 1. Bilateral vocal cord polyps 2. Pharyngeal cyst Post-op Diagnosis Same Procedure Performed 1. Microdirect laryngoscopy 2. Excision of bilateral vocal cord polyps 3. Excision of pharyngeal cyst Surgeon Dave Membreno MD Anesthesia General Indications See above Findings Patient had slight regression of the left vocal cord polyps they were still excised via micro flap technique. Right-sided the polyps were very mature necessitating excision via micro flap with excision of redundant epithelium as well. Pharyngeal cyst was large measuring about 2 x 1 cm. No major bleeding no major complications. Patient tolerated the procedure well. Description of Procedure Patient identified consent verified in the preoperative holding area. Patient b rought to the operating room. Time-out performed. General anesthesia was induced and endotracheal tube 6.5 was inserted the patient's airway. Patient prepped draped position procedure confirmed 2nd time-out performed. Bed rotated. Dedo laryngoscope inserted this cyst viewed I went deeper that glottis brought into view. Patient placed in suspension. Right vocal cord polyp micro flap made at the superior portion of the redundant mucosa gelatinous material was suctioned out, however there was still rotate still remained a large amount of mature polyp and epithelium this had to be excised in strip. The good news is there was a good amount of epithelium inferiorly that was able to fold over on the right. Any bleeding was controlled with Afrin-soaked pledgets. Left- sided polyps had regressed which was nice however there still remained bulky edema a micro flap incision was made on the superior aspect of the epithelium. The gelatinous material was suctioned out. And the epithelium was placed back over the incision. No loss of tissue there. Attention was then turned to the pharyngeal cyst the Dedo laryngoscope was slightly removed until the cyst was brought into view. The cyst was grabbed with forceps and pulled I used a combination of straight and up-biting scissors to excise the mucus small piece of mucosa holding the cyst in place. Bleeding was controlled with the kisha lication of Afrin-soaked pledgets. The glottis was viewed again all pledgets removed. All blood suctioned out. No active bleeding. I performed all dictated portions of the procedure. Laryngoscope removed. Patient had a moist Ray-Fei placed over her edentulous gingiva this was also removed. Everything was accounted for. No active bleeding at the end of the case. Blood loss about 3 cc. I performed all dictated portions of procedure. Care the patient given back to Anesthesiology. I remained in the room in in the surgery center to the patient was wide awake and speaking. Estimated Blood Loss 3 Drains No Packing No Pathology Yes Complications No immediate complications Condition Stable Disposition PACU [facility] Billing Surgery - Charge Forward: Surgery Billing
[2025-03-18] MEDS: oxyCODONE HCL (*CRX) 5 MG TAB IR PO (10:07)
--- NOTE | 2025-03-18 10:24 | SUR.PHASEII ---
PT AWAKE AND ALERT. STATES SHE WANTS TO GO HOME. RESP EVEN UNLABORED.
== END 2025-03-18 10:30 | disposition home or self-care (01) ==
PROVIDERS: PCP Family Medicine; Visit Provider Otolaryngology
PROC: 0CJS8ZZ Inspection of Larynx, Via Natural or Artificial Opening Endoscopic (ICD-10-PCS; CPT 31541; principal; 2025-03-18 07:30)
DX: J38.1 Polyp of vocal cord and larynx (principal); J39.2 Other diseases of pharynx
CPT/HCPCS: 31541